=== PATIENT | male | born 1945 | race Caucasian/White ===

== ENCOUNTER 2019-12-06 10:00 | Inpatient (IN) | payer MEDICARE ==
[~2019-12-06] VITALS: Ht 162.6 cm; Wt 63.6 kg
[2019-12-06] MEDS ORDERED: ALBUTEROL 90 MCG/ACT 8GM HFA INHALER INH SCH (10:15)
[2019-12-06] MEDS ORDERED: lisinopriL 5 MG TAB PO ONE (10:30)
[2019-12-06] MEDS ORDERED: CARVedilol 3.125 MG TAB PO ONE (10:30)
[2019-12-06 10:47] LABS: BASO % 0.2 % (0.0-1.0); EOS # 0.1 10^3/uL (0.0-0.5); EOS % 0.6 % (0.0-3.0); HEMATOCRIT 41.8 % (42.0-52.0); HEMOGLOBIN 12.9 g/dl (13.5-17.5); LYMPH # 1.8 10^3/uL (1.5-5.0); LYMPH % 16.8 % (24.0-44.0); MEAN CORPUSCULAR HEMOGLOBIN 30.8 pg (27.0-33.0); MEAN CORPUSCULAR HGB CONC 30.9 g/dl (32.0-36.5); MEAN CORPUSCULAR VOLUME 99.8 fl (80.0-96.0); MONO # 0.7 10^3/uL (0.0-0.8); MONO % 6.2 % (0.0-5.0); NEUTROPHILS # 8.3 10^3/uL (1.5-8.5); NEUTROPHILS % 75.8 % (36.0-66.0); PLATELET COUNT, AUTOMATED 230 10^3/uL (150-450); RED BLOOD COUNT 4.19 10^6/uL (4.30-6.10); WHITE BLOOD COUNT 10.9 10^3/uL (4.0-10.0)
[2019-12-06] MEDS ORDERED: methylPREDNISolone INJ 125 MG/2 ML VIAL (J2930) IV ONE (11:00)
[2019-12-06] MEDS: COMBIVENT RESPIMAT 100-20MCG INHALER 4GM INH SCH ×3 (11:08→11:39)
[2019-12-06 11:19] LABS: ALBUMIN 3.7 GM/DL (3.2-5.2); BILIRUBIN,DIRECT 0.1 MG/DL (0.0-0.2); BILIRUBIN,TOTAL 0.5 MG/DL (0.2-1.0); THYROID STIMULATING HORMONE 0.837 uIU/ML (0.358-3.740); THYROXINE (T4) 9.7 UG/DL (4.5-12.0); TOTAL PROTEIN 7.4 GM/DL (6.4-8.2)
--- NOTE | 2019-12-06 12:22 | REP ---
CHEST, SINGLE VIEW: There is no evidence of acute infiltrate. No pleural effusion is seen. The heart is normal in size. The mediastinal silhouette is unremarkable. The visualized osseous structures are intact. IMPRESSION: No acute pulmonary disease. Electronically Signed by Gume Mckeon MD 12/07/2019 12:09 A
[2019-12-06] MEDS ORDERED: LISI10TA4 PO (12:47)
[2019-12-06] MEDS ORDERED: ATOR80TA59 PO (12:47)
[2019-12-06] MEDS ORDERED: OMEG10002 PO (12:47)
[2019-12-06] MEDS ORDERED: ASPI-161 PO (12:47)
[2019-12-06] MEDS ORDERED: FLUO20CA22 PO (12:47)
[2019-12-06] MEDS ORDERED: FURO20TA2 PO (12:47)
[2019-12-06] MEDS ORDERED: COMBAER6 INH (12:47)
[2019-12-06] MEDS ORDERED: SYMB16INH INH (12:47)
[2019-12-06] MEDS ORDERED: D 1010004 PO (12:47)
[2019-12-06] MEDS ORDERED: GLUCOSE 4GM CHEW TABLET PO PRN (13:45)
[2019-12-06] MEDS ORDERED: DEXTROSE 50% 50 ML SYRINGE IV PRN (13:45)
[2019-12-06] MEDS ORDERED: GLUCAGON INJ 1MG VIAL SC PRN (13:45)
[2019-12-06] MEDS ORDERED: ACETAMINOPHEN TAB 650MG DOSE (2X325MG) PO PRN (13:45)
--- NOTE | 2019-12-06 13:52 | HPEPDOC ---
General Date of Admission 12/06/19 Date of Service: Dec 06, 2019 Chief Complaint The patient is a 74-year-old male admitted with a reason for visit of Diff Breathing. 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 Patient stated that today he started feeling shortness of breath associated with fatigue. He denied any fever, chills, increased sputum production or increased cough. In emergency room patient was found to have acute on chronic hypercarbic respiratory failure on ABG, pH 7.2. Patient received treatment with oxygen therapy and IV steroids. Res piratory panel negative. Chest x-ray didn't show any acute pulmonary infiltrate. EKG showed sinus tach with left bundle branch block. Home Medications Scheduled Aspirin (Aspirin EC) 81 Mg Tablet.dr, 81 MG PO DAILY, (Reported) Atorvastatin Calcium (Atorvastatin Calcium) 80 Mg Tablet, 40 MG PO DAILY, (Reported) Budesonide/Formoterol (Symbicort 160-4.5 Mcg Inhaler) 6 Gm Hfa.aer.ad, 2 PUFF INH BID, (Reported) Cholecalciferol (Vitamin D3) (Vitamin D3) 25 Mcg Capsule, 50 MCG PO DAILY, (Reported) Fluoxetine Hcl (Fluoxetine HCl) 20 Mg Capsule, 20 MG PO DAILY, (Reported) Furosemide (Furosemide) 20 Mg Tablet, 20 MG PO DAILY, (Reported) Lisinopril (Lisinopril) 10 Mg Tablet, 5 MG PO DAILY, (Reported) [place]-3/Dha/Epa/Fish Oil (Fish Oil 1,000 mg Softgel) 1 Each Capsule, 1,000 MG PO TID, (Reported) Prednisone (Prednisone) 20 Mg Tablet, 20 MG PO BID Scheduled PRN Ipratropium/Albuterol Sulfate (Combivent Respimat 20-100 Mcg) 4 Gm Mist.inhal, 1 PUFF INH QID PRN for SHORTNESS OF BREATH, (Reported) Allergies Coded Allergies: No Known Allergies (Unverified , 12/06/19) Past Medical History Medical History Type 2 diabetes, COPD, asthma, coronary artery diseases, hypertension Family History I personally reviewed family history and found not pertinent Social History * Smoker: former Smoker Alcohol: Denies Drugs: denies A-FIB/CHADSVASC A-FIB History Current/History of A-Fib/PAF?: No Current PO Anticoag Therapy: No Review of Systems Constitutional: Reports: Fatigue; Denies: Chills, Fever Eyes: Denies: Pain ENT: Denies: Head Aches Skin: Denies: Rash Pulmonary: Reports: Dyspnea Cardiovascular: Denies: Chest Pain, Palpitations Gastrointestinal: Denies: Nausea, Vomiting Genitourinary: Denies: Dysuria Hematologic: Denies: Bruising, Bleeding Excessively Endocrine: Denies: Polydipsia Musculoskeletal: Denies: Neck Pain, Back Pain Neurological: Denies: Weakness Psych: Reports: Mood Normal Physical Examination General Exam: Positive: Alert, Cooperative Eye Exam: Positive: PERRLA ENT Exam: Positive: Atraumatic Neck Exam: Positive: Supple; Negative: JVD Chest Exam: Positive: Diminished Heart Exam: Positive: Tachycardic Telemetry: Positive: Sinus Abdomen Exam: Positive: Normal bowel sounds Extremity Exam: Positive: Clubbing; Negative: Cyanosis Skin Exam: Positive: Nl turgor and temperature Neuro Exam: Positive: Strength at 5/5 X4 ext Psych Exam: Positive: Mental status NL Vital Signs Vital Signs Date Time Temp Pulse Resp B/P (MAP) Pulse Ox O2 Delivery O2 Flow Rate FiO2 12/06/19 12:08 90 25 91 Comfort Flow 12/06/19 12:00 134/87 (103) 12/06/19 11:11 40.0 35 12/06/19 10:00 98.6 Laboratory Data Labs 24H Laboratory Tests 2 12/06/19 10:28: Immature Granulocyte % (Auto) 0.4, Neutrophils (%) (Auto) 75.8H, Lymphocytes (%) (Auto) 16.8L, Monocytes (%) (Auto) 6.2H, Eosinophils (%) (Auto) 0.6, Basophils (%) (Auto) 0.2, Neutrophils # (Auto) 8.3, Lymphocytes # (Auto) 1.8, Monocytes # (Auto) 0.7, Eosinophils # (Auto) 0.1, Basophils # (Auto) 0.0, Nucleated Red Blood Cells % (auto) 0.0, Total Bilirubin 0.5, Direct Bilirubin 0.1, Aspartate Amino Transf (AST/SGOT) 16, Alanine Aminotransferase (ALT/SGPT) 18, Alkaline Phosphatase 85, Total Protein 7.4, Albumin 3.7, Albumin/Globulin Ratio 1.0, Thyroid Stimulating Hormone (TSH) 0.837, Thyroxine (T4) 9.7 12/06/19 10:31: POC Troponin I (Misc) 0.01, Lactic Acid Level 2.7*H 12/06/19 10:33: POC Glucose (Misc Panel) 257H, POC Sodium (Misc Panel) 144, POC Potassium (Misc Panel) 3.7, POC Chloride (Misc Panel) 98, POC Total CO2 (Misc Panel) 33.0H, POC Blood Urea Nitrogen (Misc Panel 13, POC Ionized Calcium (Misc Panel) 4.8, POC Creatinine (Misc Panel) 1.0, POC Hematocrit (Misc Panel) 43.0 12/06/19 10:48: POC Total CO2 (Misc Panel) 38.0H, POC pH (Misc Panel) 7.260L, POC Base Excess (Misc Panel) 9.0H, POC Saturated Percent O2 (Misc) 99H, POC pO2 (Misc Panel) 150.0H, POC pCO2 (Misc Panel) 80.4*H, POC HCO3 (Misc Panel) 36.1H 12/06/19 12:27: POC pH (Misc Panel) 7.352, POC Base Excess (Misc Panel) 11.0H, POC Saturated Percent O2 (Misc) 92L, POC pO2 (Misc Panel) 69.0L, POC pCO2 (Misc Panel) 66.4*H, POC HCO3 (Misc Panel) 36.8H, POC Total CO2 (Misc Panel) 39.0H CBC/BMP Laboratory Tests 12/06/19 10:28 Microbiology Microbiology 12/06/19 Respiratory Virus Panel (PCR) (KAY) - Final, Complete 12/06/19 Blood Culture, Received Pending Assessment/Plan Patient is 74 years old male with past medical history of asthma, advanced COPD on 4 L at home, coronary artery diseases, hypertension, diabetes mellitus type 2 presented hospital with increased shortness of breath. Patient stated that today he started feeling shortness of breath associated with fatigue. He denied any fever, chills, increased sputum production or increased cough. In emergency room patient was found to have acute on chronic hypercarbic respiratory failure on ABG, pH 7.2. Patient received treatment with oxygen therapy and IV steroids. Respiratory panel negative. Chest x-ray didn't show any acute pulmonary infilt rate Problems (1) Acute and chronic respiratory failure with hypercapnia Status: Acute Problem Text: Most likely secondary to COPD exacerbation IV steroids Continue oxygen therapy Continue monitor ABG Inhalers Incentive spirometry (2) COPD exacerbation Status: Acute Problem Text: See above (3) Diabetes mellitus Status: Chronic Problem Text: Diabetes diet Insulin sliding scale (4) Hypertension Status: Chronic Problem Text: Continue home cardioprotective medications (5) Abnormal EKG Problem Text: EKG showed sinus tachycardia with left bundle branch block , no previous EKG to compare Patient denied any chest pain Will check troponin Plan / VTE VTE Prophylaxis Ordered?: Yes AKOSUA MCCULLOUGH DO Dec 06, 2019 13:52
[2019-12-06 14:00] VITALS: O2SAT 95
[2019-12-06] MEDS ORDERED: ALBUTEROL SULFATE 2.5 MG/0.5 ML INH NEB SOLN NEB SCH (14:00)
[2019-12-06] MEDS ORDERED: COMBIVENT RESPIMAT 100-20MCG INHALER 4GM INH SCH (14:00)
[2019-12-06] MEDS: SYMBICORT 160/4.5MCG INHALER 6GM INH SCH ×2 (14:28→19:53)
[2019-12-06 15:14] LABS: CK-MB VALUE MASS 2.4 NG/ML (<3.6); MB/CK RELATIVE INDEX 3.87 (< OR =4); TROPONIN I 0.09 NG/ML (< 0.10)
[2019-12-06] MEDS ORDERED: ALBUTEROL SULFATE 2.5 MG/0.5 ML INH NEB SOLN NEB PRN (17:00)
[2019-12-06] MEDS: HumaLOG INSULIN (NovoLOG) PER UNIT SC SCH (17:35)
[2019-12-06] MEDS: PANTOPRAZOLE 40MG TAB (PROTONIX) PO SCH (17:36)
[2019-12-06] MEDS: ASPIRIN 81 MG ENTERIC TAB PO SCH (17:36)
[2019-12-06] MEDS: ATORVASTATIN 20 MG TAB PO SCH (17:36)
[2019-12-06] MEDS: FLUoxetine 20 MG CAP PO SCH (17:36)
[2019-12-06] MEDS: FUROSEMIDE 20 MG TAB PO SCH (17:36)
[2019-12-06] MEDS: IPRATROPIUM 0.5MG/ALBUTEROL 2.5MG INH SOL UD 3ML (DUONEB) NEB SCH (19:53)
[2019-12-06] MEDS: methylPREDNISolone INJ 125 MG/2 ML VIAL (J2930) IV SCH (20:28)
[2019-12-06] MEDS: HEPARIN SOD (PORCINE) 5000UNITS/ML VIAL (J1644 PER 1000UNITS) SC SCH (20:29)
--- NOTE | 2019-12-06 20:57 | ECGEPIP ---
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
--- NOTE | 2019-12-06 20:58 | ECGEPIP ---
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
[2019-12-06] MEDS ORDERED: HumaLOG INSULIN (NovoLOG) PER UNIT SC SCH (21:00)
[2019-12-07] MEDS: IPRATROPIUM 0.5MG/ALBUTEROL 2.5MG INH SOL UD 3ML (DUONEB) NEB SCH ×3 (01:39→13:58)
[2019-12-07] MEDS: methylPREDNISolone INJ 125 MG/2 ML VIAL (J2930) IV SCH (04:44)
[2019-12-07 06:00] VITALS: BP 138/67
[2019-12-07 06:31] LABS: HEMATOCRIT 35.5 % (42.0-52.0); HEMOGLOBIN 11.2 g/dl (13.5-17.5); MEAN CORPUSCULAR HGB CONC 31.5 g/dl (32.0-36.5); MEAN CORPUSCULAR VOLUME 98.3 fl (80.0-96.0); PLATELET COUNT, AUTOMATED 191 10^3/uL (150-450); RED BLOOD COUNT 3.61 10^6/uL (4.30-6.10)
[2019-12-07 06:59] LABS: ALBUMIN 2.9 GM/DL (3.2-5.2); ALT/SGPT 16 U/L (12-78); BILIRUBIN,TOTAL 0.5 MG/DL (0.2-1.0); BLOOD UREA NITROGEN 24 MG/DL (7-18); CALCIUM LEVEL 8.9 MG/DL (8.8-10.2); CARBON DIOXIDE LEVEL 33 MEQ/L (21-32); CHLORIDE LEVEL 103 MEQ/L (98-107); CREATININE FOR GFR 1.02 MG/DL (0.70-1.30); GLOMERULAR FILTRATION RATE > 60.0 (>42); GLUCOSE, FASTING 197 MG/DL (70-100); MAGNESIUM LEVEL 2.1 MG/DL (1.8-2.4); POTASSIUM SERUM 3.9 MEQ/L (3.5-5.1); SODIUM LEVEL 141 MEQ/L (136-145); TOTAL PROTEIN 6.7 GM/DL (6.4-8.2)
[2019-12-07] MEDS: HumaLOG INSULIN (NovoLOG) PER UNIT SC SCH ×2 (08:11→12:36)
[2019-12-07] MEDS: HEPARIN SOD (PORCINE) 5000UNITS/ML VIAL (J1644 PER 1000UNITS) SC SCH (08:12)
[2019-12-07] MEDS: FLUoxetine 20 MG CAP PO SCH (08:13)
[2019-12-07] MEDS: FUROSEMIDE 20 MG TAB PO SCH (08:13)
[2019-12-07] MEDS: PANTOPRAZOLE 40MG TAB (PROTONIX) PO SCH (08:13)
[2019-12-07] MEDS: ATORVASTATIN 20 MG TAB PO SCH (08:13)
[2019-12-07] MEDS: ASPIRIN 81 MG ENTERIC TAB PO SCH (08:13)
[2019-12-07 08:15] VITALS: BP 148/77
[2019-12-07] MEDS ORDERED: lisinopriL 5 MG TAB PO SCH (09:00)
[2019-12-07] MEDS ORDERED: PRED20TA PO (12:33)
--- NOTE | 2019-12-07 12:38 | DS.PDOC ---
Discharge Summary General Date of Admission Dec 06, 2019 at 13:36 Date of Discharge 12/07/19 Discharge Summary Chief complaint: Shortness of breath Final diagnosis COPD exacerbation Hypercapnic respiratory failure History of Present Illness Patient is 74 years old male with past medical history of asthma, advanced COPD on 4 L at home, coronary artery diseases, hypertension, diabetes mellitus type 2 presented hospital with increased shortness of breath. Patient stated that today he started feeling shortness of breath associated with fatigue. He denied any fever, chills, increased sputum production or increased cough. In emergency room patient was found to have acute on chronic hypercarbic respiratory failure on ABG, pH 7.2. Patient received treatment with oxygen therapy and IV steroids. Respiratory panel negative. Chest x-ray didn't show any acute pulmonary infiltrate. The patient's ABG improved and the patient's PCO2 came down from 70s to mid 50s. The patient is alert, oriented to time, place and person. The patient has no wheezing, no rhonchi on physical examination. He has been noncompliant with his inhalers and IV spoke with him in detail regarding the compliance. Also suggested to follow with pulmonary for possible repeat PFTs. He is optimized on his inhalers and will be given 20 mg of prednisone for 4 more days and discharge. Also, his EKG showed sinus tach with left bundle branch block.. He denied any chest pains. His troponins were negative. He has been advised to follow with the PCP regarding a repeat EKG and a possible cardiology follow-up if warranted, and part by PCP. He uses 4 L of oxygen at home and is currently on his baseline. PHYSICAL EXAMINATION: General: The patient is awake, alert, oriented x3, sitting up in the bed in no apparent distress. Head and Neck Exam: Extraocular muscles intact. Pupils equally round and reactive to light. Mucous membranes are moist. Neck is supple. There is no jugular venous distention (JVD). Cardiovascular: S1 and S2, regular rate. Trace edema of the bilateral lower extremities. Respiratory: Mild inspiratory wheeze but otherwise normal breath sounds Abdomen: Soft. Positive bowel sounds. Nontender. No organomegaly. Musculoskeletal: Clubbing of the fingernails, no cyanosis was noted. 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 Power is 5/5 in all extremities. Medications. As per discharge reconciliation medication list Activity as tolerated Diet. 2 g sodium diet Follow-up appointments. PCP in 1 week, Condition on discharge. Patient is medically optimized for discharge Discharge disposition: Home Total time spent on this discharge including coordination of care, review of chart documentation and actual contact is around 35 minutes Vital Signs/I&Os Vital Signs Date Time Temp Pulse Resp B/P (MAP) Pulse Ox O2 Delivery O2 Flow Rate FiO2 12/07/19 08:15 148/77 12/07/19 07:59 4.0 12/07/19 06:00 98.1 79 18 93 Nasal Cannula 12/06/19 11:11 35 I&O- Last 24 Hours up to 6 AM 12/07/19 06:00 Intake Total 520 ml Output Total 300 ml Balance 220 ml Laboratory Data Labs 24H Laboratory Tests 2 12/06/19 14:05: Total Creatine Kinase 62, Creatine Kinase MB 2.4, Creatine Kinase MB Relative Index 3.87, Troponin I 0.09 12/06/19 15:10: Lactic Acid Followup at 4 Hours 1.4 12/06/19 16:30: Bedside Glucose (Misc Panel) 232H 12/06/19 19:50: Bedside Glucose (Misc Panel) 212H 12/07/19 05:59: Nucleated Red Blood Cells % (auto) 0.0, Anion Gap 5L, Glomerular Filtration Rate > 60.0, Calcium Level 8.9, Magnesium Level 2.1, Total Bilirubin 0.5, Aspartate Amino Transf (AST/SGOT) 13, Alanine Aminotransferase (ALT/SGPT) 16, Alkaline Phosphatase 61, Total Protein 6.7, Albumin 2.9#L, Albumin/Globulin Ratio 0.8 12/07/19 11:28: Bedside Glucose (Misc Panel) 178H CBC/BMP Laboratory Tests 12/07/19 05:59 FSBS Laboratory Tests Test 12/06/19 16:30 12/06/19 19:50 12/07/19 11:28 Range/Units Bedside Glucose (Misc Panel) 232 212 178 83-110 MG/DL Microbiology Microbiology 12/06/19 Blood Culture, Received Pending 12/06/19 Respiratory Virus Panel (PCR) (KAY) - Final, Complete 12/06/19 Blood Culture - Preliminary, Resulted No growth after 24 hours . All specim... Discharge Medications Scheduled Aspirin (Aspirin EC) 81 Mg Tablet.dr, 81 MG PO DAILY, (Reported) Atorvastatin Calcium (Atorvastatin Calcium) 80 Mg Tablet, 40 MG PO DAILY, (Reported) Budesonide/Formoterol (Symbicort 160-4.5 Mcg Inhaler) 6 Gm Hfa.aer.ad, 2 PUFF INH BID, (Reported) Cholecalciferol (Vitamin D3) (Vitamin D3) 25 Mcg Capsule, 50 MCG PO DAILY, (Reported) Fluoxetine Hcl (Fluoxetine HCl) 20 Mg Capsule, 20 MG PO DAILY, (Reported) Furosemide (Furosemide) 20 Mg Tablet, 20 MG PO DAILY, (Reported) Lisinopril (Lisinopril) 10 Mg Tablet, 5 MG PO DAILY, (Reported) [place]-3/Dha/Epa/Fish Oil (Fish Oil 1,000 mg Softgel) 1 Each Capsule, 1,000 MG PO TID, (Reported) Prednisone (Prednisone) 20 Mg Tablet, 20 MG PO BID Scheduled PRN Ipratropium/Albuterol Sulfate (Combivent Respimat 20-100 Mcg) 4 Gm Mist.inhal, 1 PUFF INH QID PRN for SHORTNESS OF BREATH, (Reported) Allergies Coded Allergies: No Known Allergies (Unverified , 12/06/19) ASAD LYNN MD Dec 07, 2019 12:38
[2019-12-07] MEDS: SYMBICORT 160/4.5MCG INHALER 6GM INH SCH (13:58)
[2019-12-07 14:00] VITALS: BP 114/57
[2019-12-07] MEDS ORDERED: methylPREDNISolone INJ 125 MG/2 ML VIAL (J2930) IV SCH (17:00)
== END 2019-12-07 16:20 | disposition home or self-care (01) | DRG 189 ==
LOC: M ED 10:00 → M ED INP 13:36 → ENRESERV 14:16 → M MSPAV 16:12
PROVIDERS: ADMIT Internal Medicine; ATTEND Internal Medicine
DX: J96.22 Acute and chronic respiratory failure with hypercapnia (principal); J44.1 Chronic obstructive pulmonary disease with (acute) exacerbation; E11.9 Type 2 diabetes mellitus without complications; I10 Essential (primary) hypertension; I25.10 Atherosclerotic heart disease of native coronary artery without angina pectoris; Z79.82 Long term (current) use of aspirin; Z79.899 Other long term (current) drug therapy; I44.7 Left bundle-branch block, unspecified

== ENCOUNTER 2021-01-21 15:43 | Inpatient (IN) | payer MEDICARE, OTHER ==
[~2021-01-21] VITALS: Ht 162.6 cm; Wt 72.9 kg
[~2021-01-21 15:43] MED LIST: ASPI-161 PO; ATOR80TA59 PO; COMBAER6 INH; D 1010004 PO; FLUO20CA22 PO; FURO20TA2 PO; LISI10TA22 PO; OMEG10002 PO; PRED20TA PO; SYMB16INH INH
--- NOTE | 2021-01-21 16:42 | REP ---
INDICATION: CHEST PAIN. COMPARISON: 12/06/2019. TECHNIQUE: Single portable AP view of the chest was performed. FINDINGS: There is no acute infiltrate or pulmonary edema. Lungs are clear. The heart is not significantly enlarged. The mediastinal silhouette is unremarkable. The visualized osseous structures are intact. IMPRESSION: No acute pulmonary disease. <Electronically signed by Gume Mckeon > 01/21/21 [id number]
[2021-01-21] MEDS ORDERED: methylPREDNISolone 125MG 2ML VIAL IV ONE (16:50)
[2021-01-21 17:09] LABS: BASO % 0.3 % (0.0-1.0); EOS % 0.6 % (0.0-3.0); HEMATOCRIT 45.6 % (42.0-52.0); HEMOGLOBIN 14.3 g/dl (13.5-17.5); LYMPH # 1.1 10^3/uL (1.5-5.0); LYMPH % 15.8 % (24.0-44.0); MEAN CORPUSCULAR HEMOGLOBIN 30.1 pg (27.0-33.0); MEAN CORPUSCULAR HGB CONC 31.4 g/dl (32.0-36.5); MONO # 0.5 10^3/uL (0.0-0.8); MONO % 7.5 % (2.0-8.0); NEUTROPHILS % 75.5 % (36.0-66.0); PLATELET COUNT, AUTOMATED 199 10^3/uL (150-450); RED BLOOD COUNT 4.75 10^6/uL (4.30-6.10); WHITE BLOOD COUNT 6.7 10^3/uL (4.0-10.0)
[2021-01-21] MEDS: COMBIVENT RESPIMAT 100-20MCG INHALER 4GM INH SCH ×3 (17:12→18:16)
[2021-01-21 17:43] LABS: ALBUMIN 3.5 GM/DL (3.2-5.2); ALT/SGPT 26 U/L (12-78); BILIRUBIN,DIRECT 0.1 MG/DL (0.0-0.2); BILIRUBIN,TOTAL 0.6 MG/DL (0.2-1.0); FREE T4 0.88 NG/DL (0.76-1.46); LIPASE 151 U/L (73-393); NT-PRO BNP 215 PG/ML (<125); THYROID STIMULATING HORMONE 0.986 uIU/ML (0.358-3.740)
[2021-01-21 17:44] LABS: ABG BASE EXCESS 6.8 (-2.0-2.0); ABG HCO3 35.8 MEQ/L (22.0-26.0); ABG O2 SATURATION 98.6 % (95.0-99.0); ABG PARTIAL PRESSURE CO2 72.4 mmHg (35.0-45.0); ABG PARTIAL PRESSURE O2 122.9 mmHg (75.0-100.0); ABG STANDARD HCO3 30.7 MEQ/L (22.0-26.0); ABG pH (ARTERIAL) 7.312 UNITS (7.350-7.450)
[2021-01-21 18:23] LABS: BLOOD UREA NITROGEN 20 MG/DL (7-18); CALCIUM LEVEL 9.1 MG/DL (8.8-10.2); CARBON DIOXIDE LEVEL 35 MEQ/L (21-32); CHLORIDE LEVEL 102 MEQ/L (98-107); CK-MB VALUE MASS 2.5 NG/ML (<3.6); CPK CREATINE PHOSPHOKINASE 82 U/L (39-308); GLOMERULAR FILTRATION RATE > 60.0 (>42); GLUCOSE, FASTING 186 MG/DL (70-100); MB/CK RELATIVE INDEX 3.05 (< OR =4); POTASSIUM SERUM 4.5 MEQ/L (3.5-5.1); SODIUM LEVEL 140 MEQ/L (136-145); TROPONIN I 0.02 NG/ML (< 0.10)
[2021-01-21] MEDS ORDERED: ISOVUE-370 76% 100ML VIAL As Ordered ONE (19:33)
--- NOTE | 2021-01-21 20:57 | REPVR ---
PROCEDURE INFORMATION: Exam: CT Abdomen And Pelvis With Contrast Exam date and time: 01/21/2021 8:21 PM Age: 75 years old Clinical indication: Abdominal pain; Additional info: Chest pain/upper abdominal pain TECHNIQUE: Imaging protocol: Computed tomography of the abdomen and pelvis with contrast. Radiation optimization: All CT scans at this facility use at least one of these dose optimization techniques: automated exposure control; mA and/or kV adjustment per patient size (includes targeted exams where dose is matched to clinical indication); or iterative reconstruction. Contrast material: ISOVUE 370; Contrast volume: 100 ml; Contrast route: INTRAVENOUS (IV); COMPARISON: [place] PORTABLE CHEST X-RAY 01/21/2021 4:13 PM FINDINGS: Lungs: Atelectasis or scarring right lung base. Liver: There is a diffuse decrease in hepatic parenchymal density, consistent with steatosis. 5 mm simple cyst segment 2 left lobe of the liver. Gallbladder and bile ducts: Normal. No calcified stones. No ductal dilation. Pancreas: Normal. No ductal dilation. Spleen: Normal. No splenomegaly. Adrenal glands: Normal. No mass. Kidneys and ureters: Nonobstructive calculus lower pole left kidney. Bilateral renal cysts measure up to 3.3 cm in the left kidney demonstrating minimal calcification within the wall of the cyst (Bosniak type 2 lesion). No follow-up suggested. Stomach and bowel: Moderate diverticulosis is present in the distal colon. No diverticulitis. Dilated loops of small bowel demonstrated in the left upper quadrant may represent a localized ileus, findings to be correlated clinically. Appendix: No evidence of appendicitis. Intraperitoneal space: Unremarkable. No free air. No significant fluid collection. Vasculature: Moderate atherosclerotic changes in the abdominal aorta with a saccular contour on the left side of the aorta measuring up to 2.4 cm containing soft intraluminal clot. No taran aneurysm. Superior mesenteric artery originates from the hepatic artery. Lymph nodes: Unremarkable. No enlarged lymph nodes. Urinary bladder: Unremarkable as visualized. Reproductive: The prostate gland demonstrates moderate hyperplasia. Bones/joints: Mild central spinal stenosis L1-L2, L2-L3, moderate to severe central spinal stenosis L3-L4, severe central spinal stenosis L4-L5. Soft tissues: There is a small umbilical hernia. There is no evidence of incarceration. IMPRESSION: 1. There is a diffuse decrease in hepatic parenchymal density, consistent with steatosis. 2. Nonobstructive calculus lower pole left kidney. 3. Bilateral renal cysts measure up to 3.3 cm in the left kidney demonstrating minimal calcification within the wall of the cyst (Bosniak type 2 lesion). No follow-up suggested. 4. Moderate atherosclerotic changes in the abdominal aorta with a saccular contour on the left side of the aorta measuring up to 2.4 cm containing soft intraluminal clot. No taran aneurysm. 5. Moderate prostatic hyperplasia. 6. Moderate diverticulosis is present in the distal colon. No diverticulitis. 7. Dilated loops of small bowel demonstrated in the left upper quadrant may represent a localized ileus, findings to be correlated clinically. COMMENTS: Consistent with the [employer]'s Incidental Findings Committee white paper (J Am Shailesh Radiol 2018): Any incidental renal lesion less than 1 cm or classified as too small to characterize, or any incidental cystic renal lesion characterized as simple-appearing, is likely benign. No follow-up imaging is recommended for these lesions per consensus recommendations based on imaging criteria. Electronically signed by: Waldo Tan On 01/21/2021 20:57:17 PM
[2021-01-21] MEDS: HumaLOG INSULIN (NovoLOG) PER UNIT SC SCH (21:00)
--- NOTE | 2021-01-21 21:02 | REPVR ---
PROCEDURE INFORMATION: Exam: CTA Chest With Contrast Exam date and time: 01/21/2021 8:21 PM Age: 75 years old Clinical indication: Pain; Chest pressure; Additional info: Chest pain/upper abdominal pain TECHNIQUE: Imaging protocol: Computed tomographic angiography of the chest with contrast. 3D rendering (Not supervised by radiologist): MIP and/or 3D reconstructed images were created by the technologist. Radiation optimization: All CT scans at this facility use at least one of these dose optimization techniques: automated exposure control; mA and/or kV adjustment per patient size (includes targeted exams where dose is matched to clinical indication); or iterative reconstruction. Contrast material: ISOVUE 370; Contrast volume: 100 ml; Contrast route: INTRAVENOUS (IV); COMPARISON: [place] PORTABLE CHEST X-RAY 01/21/2021 4:13 PM FINDINGS: Pulmonary arteries: There are no pulmonary emboli. Aorta: There is mild atherosclerosis in the thoracic aorta. There is fusiform dilatation of the ascending thoracic aorta which measures 3.9 cm. maximally. There is no dissection or saccular component. Lungs: Centrilobular and paraseptal emphysematous changes demonstrated bilaterally. No infiltrates demonstrated. Pleural spaces: Unremarkable. No pneumothorax. No pleural effusion. Heart: There is mild atherosclerotic calcification of the coronary arteries. Lymph nodes: Unremarkable. No enlarged lymph nodes. Bones/joints: Unremarkable. No acute fracture. Soft tissues: Unremarkable. IMPRESSION: 1. Centrilobular and paraseptal emphysematous changes demonstrated bilaterally. No acute infiltrates. 2. There is fusiform dilatation of the ascending thoracic aorta which measures 3.9 cm. maximally. There is no dissection or saccular component. 3. There are no pulmonary emboli. Electronically signed by: Waldo Tan On 01/21/2021 21:01:41 PM
[2021-01-21] MEDS ORDERED: SENNA 8.6 MG TAB (SENOKOT) PO PRN (22:50)
[2021-01-21] MEDS ORDERED: LEVALBUTEROL HFA 45MCG/ACT 15 GM INHALER INH PRN (22:50)
[2021-01-21] MEDS ORDERED: amLODIPine 5 MG TAB PO ONE (22:55)
[2021-01-21] MEDS ORDERED: CARV6.25 PO (22:59)
[2021-01-21] MEDS ORDERED: HOME MED LIST COMPLETE! XX SCH (23:00)
--- NOTE | 2021-01-21 23:02 | HPEPDOC ---
General Date of Admission 01/21/2021 Date of Service: Jan 21, 2021 Chief Complaint shortness of breath, chest pain, fall off the bed Source: Patient, Old records Exam Limitations: Garbled speech Timing/Duration: 24 hours Severity: Mild Associated Symptoms: Chest Pain, Shortness of breath History of Present Illness Patient is a 75 year old male with past medical history of COPD, Coronary artery disease, hypertension, and type 2 diabetes mellitus presented to ER today by private vehicle after feeling dyspnea at home around 6:30-7AM. He said the dyspnea started gradually with alleviating factor including inhalers and laying supine; no aggravating factor. He denies coughing, fever, chills, or sputum production. He is usually on 5L of oxygen at home. He said he fell off the bed around 6:30 to 7AM and hit his forehead; patient unable to explain if it was mechanical fall or not. He denies any lightheadedness, dizziness, headache, loss of consciousness, extremity weakness, numbness, tingling, or loss of sensation. He also described chest pain that is dull; he pointed toward left upper quadrant abdomen for his chest pain location. Home Medications Scheduled Aspirin (Aspirin EC) 81 Mg Tablet.dr, 81 MG PO DAILY, (Reported) Atorvastatin Calcium (Atorvastatin Calcium) 80 Mg Tablet, 40 MG PO DAILY, (Reported) Budesonide/Formoterol (Symbicort 160-4.5 Mcg Inhaler) 6 Gm Hfa.aer.ad, 2 PUFF INH BID, (Reported) Carvedilol (Carvedilol) 6.25 Mg Tablet, 3.125 MG PO BID, (Reported) Cholecalciferol (Vitamin D3) (Vitamin D3) 25 Mcg Capsule, 50 MCG PO DAILY, (Reported) Lisinopril (Lisinopril) 10 Mg Tablet, 5 MG PO DAILY, (Reported) Guthrie-3/Dha/Epa/Fish Oil (Fish Oil 1,000 mg Softgel) 1 Each Capsule, 1,000 MG PO TID, (Reported) Scheduled PRN Ipratropium/Albuterol Sulfate (Combivent Respimat 20-100 Mcg) 4 Gm Mist.inhal, 1 PUFF INH QID PRN for SHORTNESS OF BREATH, (Reported) Allergies Coded Allergies: No Known Allergies (Unverified , 12/06/19) Past Medical History Medical History 1. Type 2 diabetes mellitus 2. COPD/asthma 3. Coronary artery disease 4. Hypertension 5. Remote history of appendix rupture 6. Teeth loss, not wearing dentures Surgical History Appendectomy 20 years ago Colonoscopy Family History Denies family history with medical disease Social History * Smoker: former Smoker (quit 4 years ago) Alcohol: Denies Drugs: denies lives at home alone A-FIB/CHADSVASC A-FIB History Current/History of A-Fib/PAF?: No Review of Systems Constitutional: Denies: Chills, Fever, Weakness ENT: Denies: Head Aches Skin: Reports: Lesions (on forehead) Pulmonary: Reports: Dyspnea; Denies: Cough Cardiovascular: Reports: Other Symptoms; Denies: Chest Pain, Palpitations, Orthopnea, Lt Headedness (palpitations) Gastrointestinal: Denies: Nausea, Vomiting, Abdominal Pain, Diarrhea, Consti pation, Hematochezia Genitourinary: Denies: Dysuria, Frequency, Hematuria, Retention Hematologic: Reports: Bleeding Excessively; Denies: Bruising Musculoskeletal: Denies: Neck Pain, Back Pain Neurological: Denies: Weakness, Numbness Psych: Reports: Mood Normal; Denies: Thoughts of Self Harm, Thoughts of Harming Other Physical Examination General Exam: Positive: Alert, Cooperative, Mild Distress Eye Exam: Positive: PERRLA, EOMI ENT Exam: Positive: Mucous membr. moist/pink, Other ENT (nasal cannula in susy ce) Neck Exam: Positive: Supple Chest Exam: Positive: Wheezing, Other (midly restricted air movement. Mild accessory muscle use); Negative: Clear to auscultation, Rales, Rhonchi Heart Exam: Positive: Tachycardic, Regular Rhythm; Negative: Murmurs Abdomen Exam: Positive: Normal bowel sounds, Soft, Tenderness (left upper quadrant tenderness) Extremity Exam: Negative: Edema, Swelling Skin Exam: Positive: Lesion (on forehead appears to be from scratches and/or picking) Neuro Exam: Positive: Strength at 5/5 X4 ext, Normal Tone, Sensation Intact, Cranial Nerves 3-12 NL, Other (garbled speech) Psych Exam: Positive: Mental status NL, Mood NL, Memory Intact, Oriented x 3 Vital Signs Vital Signs Date Time Temp Pulse Resp B/P (MAP) Pulse Ox O2 Delivery O2 Flow Rate FiO2 01/21/21 15:44 98.4 121 24 179/103 (128) 99 Nasal Cannula 5.0 Laboratory Data Labs 24H Laboratory Tests 2 01/21/21 16:49: Immature Granulocyte % (Auto) 0.3, Neutrophils (%) (Auto) 75.5H, Lymphocytes (%) (Auto) 15.8L, Monocytes (%) (Auto) 7.5, Eosinophils (%) (Auto) 0.6, Basophils (%) (Auto) 0.3, Neutrophils # (Auto) 5.0, Lymphocytes # (Auto) 1.1L, Monocytes # (Auto) 0.5, Eosinophils # (Auto) 0.0, Basophils # (Auto) 0.0, Nucleated Red Blood Cells % (auto) 0.0, Anion Gap 3L, Glomerular Filtration Rate > 60.0, Calcium Level 9.1, Total Bilirubin 0.6, Direct Bilirubin 0.1, Aspartate Amino Transf (AST/SGOT) 19, Alanine Aminotransferase (ALT/SGPT) 26, Alkaline Phosphatase 72, Total Creatine Kinase 82, Creatine Kinase MB 2.5, Creatine Kinase MB Relative Index 3.05, Troponin I 0.02, PV-Akc-P-Type Natriuretic Peptide 215H, Total Protein 7.0, Albumin 3.5, Albumin/Globulin Ratio 1.0, Lipase 151, Thyroid Stimulating Hormone (TSH) 0.986, Free Thyroxine 0.88 01/21/21 17:34: Blood Gas Bicarbonate Standard 30.7H, Arterial Blood pH 7.312L, Arterial Blood Partial Pressure CO2 72.4*H, Arterial Blood Partial Pressure O2 122.9H, Arterial Blood Total CO2 38.0H, Arterial Blood HCO3 35.8H, Arterial Blood Base Excess 6.8H, Arterial Blood Oxygen Saturation 98.6 01/21/21 22:28: POC pH (Misc Panel) 7.316L, POC Base Excess (Misc Panel) 13.0H, POC Saturated Percent O2 (Misc) 99H, POC pO2 (Misc Panel) 162.0H, POC pCO2 (Misc Panel) 77.1*H, POC HCO3 (Misc Panel) 39.3H, POC Total CO2 (Misc Panel) 42.0H CBC/BMP Laboratory Tests 01/21/21 16:49 Microbiology Microbiology 01/21/21 Respiratory Virus Panel (PCR) ([facility]) - Final, Complete Assessment/Plan Patient is a 75 year olf male with past medical history of COPD reported to be at 5L oxygen at home, coronary artery disease, type 2 diabetes mellitus, and hypertension presented to hospital due to dyspnea started this morning; denies fever, chills, or cough. He also reported chest pain with location being described as in left upper quadrant abdomen as well as falling off the bed this morning. He has palpitation, denies nausea, vomiting, dizziness, lightheadedness, headache, extremity weakness,numbness, tingling, or loss of sensation. ABG indicated respiratory acidosis mixed with metabolic alkalosis. CTA showed no PE, and first troponin was negative. He received one dose of IV 125mg solumedrol in ER and respiratory treatment. Currently saturating at 99% on 5 L nasal cannula. 1. Acute on chronic respiratory failure with hypercapnia likely secondary to COPD exacerbation -dsypnea started this morning - CTA showed "centrilobular and paraseptal emphysematous changes bilaterally." -ABG showed PH 7.312 and PCO2 72.4. Repeat ABG in the morning -s/p 125mg IV solumedrol in ER. start 80mg IV solumedrol Q8H and respiratory treatments scheduled and PRN -Continuous pulse ox and oxygen therapy titrate to oxygen saturation 88-92% -CTA showed no PE -COPD diet 2. Chest pain/left upper quadrant abdominal pain -patient indicated chest pain, described pain is in left upper abdominal region -EKG today similar to prior EKG -tele monitor. First troponin was negative. Continue to follow up with cardiac marker panel 3. Forehead lesion as a result of fall -fall this morning around 6:30 AM to 7AM -patient unable to describe it was mechanical fall -denies any lightheadedness, dizziness, headache, weakness, numbness, tingling, or loss of sensation -EOMI, CN2-12 grossly intact, muscle strength +5/5 in all four extremities. No sensation loss, numbness, or tingling upon touch -forhead lesions appears to be secondary to scratching and/or picking without active signs of infection -CT head without contrast, fall precaution, wound care for forehead lesions 4. Diabetes mellitus type 2 -not on diabetes medications at home. A1C ordered -Glucose checks and sliding scale insulin ACHS 5. Ascending thoracic aorta dilatation -CTA showed fusiform dilatation of the ascending thoracic aorta measured 3.9 cm. maximally. -Outpatient follow up 6. Hypertension -BP elevated with most recent BP 171/95 -one time dose of 5mg Amlodipine PO ordered. Continue home med Lisinopril and Carvedilol -continue vital signs 7. Hepatic steatosis -CT abd/pelvis showed "diffuse decrease in hepatic parenchymal density, consistent with steatosis." -Continue with home med atorvastatin 40mg QD -outpatient follow up 8. Left non-obstructive nephrolithiasis -CT abd/pelvis showed nonobstructive calculus lower pole left kidney -asymptomatic -outpatient follow up 9. Bilateral renal cysts -CT abd/pelvis showed bilateral renal cysts, measure up to 3.3 cm in left kidney demonstrating minimal calcification within the wall of the cyst -outpatient follow up 10. Abdominal aorta atherosclerosis -CT abd/pelvis showed "moderate atherosclerotic changes in abdominal aorta with a saccular contour on left side of the aorta measuring up to 2.4 cm containing soft intraluminal clot -outpatient follow up 11. Prostate hyperplasia -CT abd/pelvis showed moderate prostatic hyperplasia -patient denies any urinary difficulty or symptoms -outpatient follow up 12. Colonic diverticulosis -CT abd/pelvis showed "moderate diverticulosis is present in distal colon. No diverticulitis." -follow up outpatient with PCP DVT prophylaxis: lovenox, SCD, and TEDS Plan / VTE VTE Prophylaxis Ordered?: Yes (SCD, TEDS, lovenox) ANGELES SCOTT DO Jan 21, 2021 23:02
[2021-01-21] MEDS ORDERED: GLUCOSE 4GM CHEW TABLET PO PRN (23:30)
[2021-01-21] MEDS ORDERED: DEXTROSE 50% 50 ML SYRINGE IV PRN (23:30)
[2021-01-21] MEDS ORDERED: GLUCAGON INJ 1MG VIAL SC PRN (23:30)
--- NOTE | 2021-01-21 23:45 | REPVR ---
PROCEDURE INFORMATION: Exam: CT Head Without Contrast Exam date and time: 01/21/2021 11:11 PM Age: 75 years old Clinical indication: Injury or trauma; Fall; Concussion/head injury; Additional info: Reported fell off bed and hit forehead this morning TECHNIQUE: Imaging protocol: Computed tomography of the head without contrast. Radiation optimization: All CT scans at this facility use at least one of these dose optimization techniques: automated exposure control; mA and/or kV adjustment per patient size (includes targeted exams where dose is matched to clinical indication); or iterative reconstruction. COMPARISON: No relevant prior studies available. 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 No midline shift, mass, fluid collection, or evidence of acute hemorrhage. Mild right greater than left white matter chronic low attenuation. Cerebral ventricles: No ventriculomegaly. Paranasal sinuses: Visualized sinuses are unremarkable. No fluid levels. Mastoid air cells: Visualized mastoid air cells are well aerated. Vasculature: Embolized calcification in the right MCA branches. Bones/joints: Unremarkable. No acute fracture. Soft tissues: Mild forehead contusion. IMPRESSION: No acute intracranial abnormality. Electronically signed by: Mendez Swann On 01/21/2021 23:45:34 PM
[2021-01-22] VITALS (16 sets, daily range): BP systolic 126–170; BP diastolic 66–92; O2SAT 93–98
[2021-01-22 00:04] LABS: CK-MB VALUE MASS 3.8 NG/ML (<3.6); MB/CK RELATIVE INDEX 4.42 (< OR =4); TROPONIN I 0.02 NG/ML (< 0.10)
[2021-01-22] MEDS: methylPREDNISolone 125MG 2ML VIAL IV SCH ×3 (01:19→16:32)
[2021-01-22 02:56] LABS: HEMATOCRIT 44.4 % (42.0-52.0); HEMOGLOBIN 13.9 g/dl (13.5-17.5); MEAN CORPUSCULAR HEMOGLOBIN 29.9 pg (27.0-33.0); MEAN CORPUSCULAR HGB CONC 31.3 g/dl (32.0-36.5); MEAN CORPUSCULAR VOLUME 95.5 fl (80.0-96.0); PLATELET COUNT, AUTOMATED 206 10^3/uL (150-450); RED BLOOD COUNT 4.65 10^6/uL (4.30-6.10); WHITE BLOOD COUNT 6.4 10^3/uL (4.0-10.0)
[2021-01-22 03:25] LABS: BLOOD UREA NITROGEN 20 MG/DL (7-18); CALCIUM LEVEL 9.2 MG/DL (8.8-10.2); CARBON DIOXIDE LEVEL 38 MEQ/L (21-32); CHLORIDE LEVEL 102 MEQ/L (98-107); CK-MB VALUE MASS 3.7 NG/ML (<3.6); CPK CREATINE PHOSPHOKINASE 80 U/L (39-308); CREATININE FOR GFR 1.04 MG/DL (0.70-1.30); GLOMERULAR FILTRATION RATE > 60.0 (>42); GLUCOSE, FASTING 179 MG/DL (70-100); MB/CK RELATIVE INDEX 4.62 (< OR =4); POTASSIUM SERUM 4.8 MEQ/L (3.5-5.1); SODIUM LEVEL 140 MEQ/L (136-145); TROPONIN I < 0.02 NG/ML (< 0.10)
[2021-01-22] MEDS: COMBIVENT RESPIMAT 100-20MCG INHALER 4GM INH SCH ×4 (07:11→19:48)
[2021-01-22] MEDS: SYMBICORT 160/4.5MCG INHALER 6GM INH SCH ×2 (07:11→19:48)
[2021-01-22] MEDS: ASPIRIN 81MG ENTERIC TABLET PO SCH (08:13)
[2021-01-22] MEDS: VITAMIN D 1,000 INTERNATIONAL UNITS TABLET PO SCH (08:13)
[2021-01-22] MEDS: ATORVASTATIN 20 MG TAB PO SCH (08:14)
[2021-01-22] MEDS: lisinopriL 5 MG TAB PO SCH (08:14)
[2021-01-22] MEDS: CARVedilol 3.125 MG TAB PO SCH ×2 (08:15→21:16)
[2021-01-22] MEDS: ENOXAPARIN 40MG/0.4ML SYRINGE (J1650 PER 10MG) SC SCH (08:15)
[2021-01-22] MEDS: HumaLOG INSULIN (NovoLOG) PER UNIT SC SCH ×4 (08:16→21:00)
[2021-01-22] MEDS ORDERED: SLF 3 ML SYR IV PRN (08:25)
[2021-01-22] MEDS: OMEGA-3 1000MG CAPSULE PO SCH ×3 (08:26→21:16)
[2021-01-22 08:39] LABS: ABG BASE EXCESS 6.1 (-2.0-2.0); ABG HCO3 33.8 MEQ/L (22.0-26.0); ABG O2 SATURATION 98.5 % (95.0-99.0); ABG PARTIAL PRESSURE O2 111.3 mmHg (75.0-100.0); ABG TOTAL CO2 35.8 MEQ/L (23.0-31.0); ABG pH (ARTERIAL) 7.347 UNITS (7.350-7.450)
[2021-01-22 08:45] LABS: ABG PARTIAL PRESSURE CO2 63.1 mmHg (35.0-45.0)
--- NOTE | 2021-01-22 09:03 | IPN ---
PROGRESS NOTE DATE: 01/22/2021 SUBJECTIVE: The patient still complains of dyspnea with dyspnea on exertion improved from yesterday, cough productive of white sputum. No fever or chills. No nausea or vomiting, headache, diarrhea or abdominal pain. He complains of difficulty starting urine and urine retention. OBJECTIVE: VITAL SIGNS: Temperature 97.2, pulse 87, respiratory rate 20, blood pressure is 134/66, 98% on 5 liters nasal cannula. GENERAL: Patient is awake, alert and oriented to person, place and time, answering questions appropriately. He appears disheveled with overgrown chen. He speaks in full sentences. No conversational dyspnea. No JVD or thyromegaly. LUNGS: Diminished, prolonged expiration with faint expiratory wheezing. HEART: S1 and S2, sinus rhythm. ABDOMEN: Soft, nontender and nondistended. Positive bowel sounds. EXTREMITIES: No cyanosis or clubbing. LABORATORY DATA/MICROBIOLOGY AND IMAGING STUDIES: Have been reviewed. ASSESSMENT AND PLAN: A 75-year-old admitted with dyspnea status post fall and head trauma complains of chest pain, admitted for COPD exacerbation. IMPRESSION: 1. Acute COPD exacerbation. 2. Chronic hypoxic respiratory failure on 5 liters of home oxygen. 3. Chronic left upper quadrant abdominal pain. 4. Recent fall, most likely mechanical. 5. Type 2 diabetes. 6. Ascending thoracic aortic dilatation. CTA shows fusiform dilatation without dissection. 7. Hypertension. 8. Hepatic steatosis. 9. Left nonobstructive nephrolithiasis. 10.Bilateral renal cysts. 11.Abdominal aortic atherosclerotic disease of a 2.4 cm left sided intraluminal clot. 12.Prostate hyperplasia. 13.Colonic diverticulosis without diverticulitis. PLAN: Continue patient on current Solu-Medrol nebulizer treatments, home medications, recheck an ABG, respiratory panel is negative. Keep oxygen saturation 88 to 92%. Titrate oxygen as needed. ARU consult. Will need to review the patient's CT of the chest, abdomen and pelvis with vascular surgery. BRIDGET
[2021-01-22] MEDS: TAMSULOSIN 0.4 MG CAP PO SCH (10:18)
--- NOTE | 2021-01-22 15:47 | ECGEPIP ---
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
[2021-01-22] MEDS: SLF 3 ML SYR IV SCH ×2 (16:32→21:18)
[2021-01-23] VITALS (15 sets, daily range): BP systolic 128–144; BP diastolic 66–89; O2SAT 78–98
[2021-01-23] MEDS: ACETAMINOPHEN TAB 650MG DOSE (2X325MG) PO PRN (02:22)
[2021-01-23] MEDS: methylPREDNISolone 125MG 2ML VIAL IV SCH ×3 (02:23→16:49)
[2021-01-23] MEDS: SLF 3 ML SYR IV SCH ×3 (05:28→21:39)
[2021-01-23] MEDS: COMBIVENT RESPIMAT 100-20MCG INHALER 4GM INH SCH ×4 (08:00→20:00)
[2021-01-23] MEDS: SYMBICORT 160/4.5MCG INHALER 6GM INH SCH ×2 (08:17→20:10)
[2021-01-23 09:32] LABS: BASO % 0.1 % (0.0-1.0); HEMATOCRIT 42.1 % (42.0-52.0); HEMOGLOBIN 13.3 g/dl (13.5-17.5); LYMPH # 0.8 10^3/uL (1.5-5.0); MEAN CORPUSCULAR HEMOGLOBIN 30.2 pg (27.0-33.0); MEAN CORPUSCULAR HGB CONC 31.6 g/dl (32.0-36.5); MEAN CORPUSCULAR VOLUME 95.7 fl (80.0-96.0); MONO # 0.4 10^3/uL (0.0-0.8); MONO % 2.9 % (2.0-8.0); NEUTROPHILS % 91.4 % (36.0-66.0); PLATELET COUNT, AUTOMATED 217 10^3/uL (150-450); WHITE BLOOD COUNT 15.4 10^3/uL (4.0-10.0)
[2021-01-23] MEDS: ASPIRIN 81MG ENTERIC TABLET PO SCH (09:33)
[2021-01-23] MEDS: TAMSULOSIN 0.4 MG CAP PO SCH (09:33)
[2021-01-23] MEDS: OMEGA-3 1000MG CAPSULE PO SCH ×3 (09:33→21:38)
[2021-01-23] MEDS: ATORVASTATIN 20 MG TAB PO SCH (09:33)
[2021-01-23] MEDS: VITAMIN D 1,000 INTERNATIONAL UNITS TABLET PO SCH (09:34)
[2021-01-23] MEDS: CARVedilol 3.125 MG TAB PO SCH ×2 (09:34→21:38)
[2021-01-23] MEDS: ENOXAPARIN 40MG/0.4ML SYRINGE (J1650 PER 10MG) SC SCH (09:34)
[2021-01-23] MEDS: lisinopriL 5 MG TAB PO SCH (09:35)
[2021-01-23] MEDS: HumaLOG INSULIN (NovoLOG) PER UNIT SC SCH ×4 (09:35→21:00)
[2021-01-23 09:37] LABS: ABG BASE EXCESS 4.1 (-2.0-2.0); ABG HCO3 31.8 MEQ/L (22.0-26.0); ABG O2 SATURATION 98.1 % (95.0-99.0); ABG PARTIAL PRESSURE O2 103.6 mmHg (75.0-100.0); ABG STANDARD HCO3 28.1 MEQ/L (22.0-26.0); ABG TOTAL CO2 33.7 MEQ/L (23.0-31.0); ABG pH (ARTERIAL) 7.326 UNITS (7.350-7.450)
[2021-01-23 09:38] LABS: ABG PARTIAL PRESSURE CO2 62.3 mmHg (35.0-45.0)
[2021-01-23 10:18] LABS: BLOOD UREA NITROGEN 38 MG/DL (7-18); CALCIUM LEVEL 9.3 MG/DL (8.8-10.2); CARBON DIOXIDE LEVEL 35 MEQ/L (21-32); CHLORIDE LEVEL 101 MEQ/L (98-107); CK-MB VALUE MASS 9.3 NG/ML (<3.6); CPK CREATINE PHOSPHOKINASE 176 U/L (39-308); CREATININE FOR GFR 1.08 MG/DL (0.70-1.30); GLOMERULAR FILTRATION RATE > 60.0 (>42); GLUCOSE, FASTING 301 MG/DL (70-100); MB/CK RELATIVE INDEX 5.28 (< OR =4); POTASSIUM SERUM 4.5 MEQ/L (3.5-5.1); SODIUM LEVEL 139 MEQ/L (136-145); TROPONIN I < 0.02 NG/ML (< 0.10)
--- NOTE | 2021-01-23 14:51 | IPN ---
PROGRESS NOTE DATE: 01/21/2021 SUBJECTIVE: Patient still complains of dyspnea on exertion, was found to be tachycardic yesterday when he ambulated without any syncopal episode or lightheadedness or dizziness. No chest pain, pressure or tightness this morning. Cough is improving. No fever or chills. OBJECTIVE: Vital signs: Temperature 97.3, pulse 104, sinus tachycardia, respiratory rate 18, blood pressure 128/87, 97% on 3 liters nasal cannula. General: Patient is disheveled, no respiratory distress, able to complete his sentences. Neck: No JVD, no thyromegaly, no cervical lymphadenopathy. Lungs: Diminished with faint expiratory wheezing improved from yesterday. Heart: S1 and S2 sinus tachycardia. Abdomen: Soft, nontender, nondistended, positive bowel sounds. Extremities: No cyanosis, clubbing or any pitting edema. LABORATORY DATA: Laboratory data and microbiology have been reviewed. IMAGING STUDIES: Reviewed. ASSESSMENT: This is a 75-year-old male with a history of COPD, home oxygen dependent with chronic hypoxic respiratory failure, hypertension, ascending thoracic aortic dilatation, abdominal aortic atherosclerotic disease 2.4 cm left sided intraluminal clot, colonic diverticulosis, type-2 diabetes admitted due to worsening shortness of breath, cough productive of white sputum, being treated for a COPD exacerbation. IMPRESSIONS: 1. Acute COPD exacerbation. 2. Chronic hypoxic respiratory failure. 3. Recent fall most likely mechanical. 4. Chronic left upper quadrant abdominal pain. 5. Type-2 diabetes. 6. Ascending thoracic aortic dilation. CTA shows fusiform dilatation without dissection. 7. Hypertension. 8. Hepatic steatosis. 9. Left non-obstructive nephrolithiasis. 10. Bilateral renal cysts. 11. Abdominal aortic atherosclerotic disease 2.4 cm on the left with an intraluminal clot. 12. Prostatic hyperplasia. 13. Diverticulosis. PLAN: Patient is anxious to go home. He has improved air entry with decreased wheezing. May start to taper down the steroids, continue with nebulizer treatments, recheck patient's arterial blood gas, await further physical therapy 1-2 more sessions prior to discharge. BRIDGET
[2021-01-24] VITALS (9 sets, daily range): BP systolic 116–136; BP diastolic 66–93; O2SAT 94–99
[2021-01-24] MEDS: methylPREDNISolone 125MG 2ML VIAL IV SCH ×4 (03:02→20:59)
[2021-01-24] MEDS: SLF 3 ML SYR IV SCH ×3 (03:03→21:00)
[2021-01-24] MEDS: COMBIVENT RESPIMAT 100-20MCG INHALER 4GM INH SCH (07:14)
[2021-01-24] MEDS: SYMBICORT 160/4.5MCG INHALER 6GM INH SCH ×2 (07:14→20:30)
[2021-01-24] MEDS: LEVALBUTEROL 1.25 MG/0.5 ML CONCENTRATE NEB INH SCH ×4 (08:00→20:00)
[2021-01-24] MEDS ORDERED: LEVALBUTEROL 1.25 MG/0.5 ML CONCENTRATE NEB INH PRN (08:45)
[2021-01-24] MEDS: HumaLOG INSULIN (NovoLOG) PER UNIT SC SCH ×4 (08:52→21:00)
[2021-01-24] MEDS: ENOXAPARIN 40MG/0.4ML SYRINGE (J1650 PER 10MG) SC SCH (08:52)
[2021-01-24] MEDS: CARVedilol 3.125 MG TAB PO SCH ×2 (08:53→20:59)
[2021-01-24] MEDS: guaiFENesin ER 600 MG TAB PO SCH ×2 (08:53→20:58)
[2021-01-24] MEDS: TAMSULOSIN 0.4 MG CAP PO SCH (08:53)
[2021-01-24] MEDS: lisinopriL 5 MG TAB PO SCH (08:53)
[2021-01-24] MEDS: ASPIRIN 81MG ENTERIC TABLET PO SCH (08:53)
[2021-01-24] MEDS: VITAMIN D 1,000 INTERNATIONAL UNITS TABLET PO SCH (08:53)
[2021-01-24] MEDS: ATORVASTATIN 20 MG TAB PO SCH (08:54)
[2021-01-24] MEDS: OMEGA-3 1000MG CAPSULE PO SCH ×3 (09:02→20:58)
--- NOTE | 2021-01-24 09:41 | IPN ---
PROGRESS NOTE DATE: 01/24/2021 SUBJECTIVE: Patient has significant distress, able to speak only three to four words with significant conversational dyspnea, use of respiratory accessory muscles, on Solumedrol 80 IV q. 8, he complains of cough which is nonproductive, difficult to expectorate. No fever or chills overnight. Complains of some dyspnea on exertion walking around the room, still with weakness and requires 1 to 2 more sessions of Physical Therapy. Patient is anxious to go home and says that his dog is waiting for him but he realizes that his recovery is taking longer and is still okay to stay in the hospital for treatment. He says "I still want to live, you know." OBJECTIVE: VITAL SIGNS: Temperature 97.5, pulse 95, respiratory rate 23, blood pressure 123/83, 95% on 2 liters nasal cannula. GENERAL: Patient is awake, alert and oriented, muffled speech with disheveled look and chen. Patient is having some difficulty speaking with four to five word conversational dyspnea. NECK: No JVD. No thyromegaly. No cervical lymphadenopathy. Dry mucous membranes. Poor dentition. Disheveled appearing. Positive use of respiratory accessory muscles without tracheal deviation. LUNGS: Diminished with prolonged expiration and bilateral expiratory wheezing. No tripod positioning. HEART: S1 and S2, sinus rhythm. ABDOMEN: Soft, nontender and nondistended. Positive bowel sounds. EXTREMITIES: No cyanosis, clubbing or any pitting edema. LABORATORY DATA: CBC and metabolic panel have been reviewed. ASSESSMENT AND PLAN: This is a 75-year-old male with a history of agent orange exposure, possible black lung, followed at the [facility] in [place], COPD, home oxygen dependent 5 liters, ascending aortic thoracic aneurysm, tobacco abuse, colonic diverticulosis, Type 2 diabetes, presented with dyspnea, cough production, and admitted for COPD exacerbation. IMPRESSION: 1. Acute COPD exacerbation. 2. Acute on chronic hypercarbic respiratory failure. 3. Acute on chronic respiratory acidosis secondary to hypercarbia. 4. Chronic hypoxic respiratory failure on supplemental oxygen 5 liters at home. 5. Recent fall, most likely mechanical. 6. Chronic left upper quadrant abdominal pain. 7. Type 2 diabetes with steroid induced hyperglycemia. 8. Ascending thoracic aortic dilatation without dissection. 9. Hypertension, controlled. 10.Hepatic steatosis. 11.Left nonobstructive nephrolithiasis. 12.Bilateral renal cysts. 13.Abdominal aortic atherosclerotic disease 2.4 cm with intraluminal clot. 14.Prostatic hyperplasia. 15.Diverticulosis. PLAN: Patient is medically sick and unable to ambulate well with significant dyspnea on exertion. He has significant wheezing on exam with poor air movement and use of respiratory accessory muscles, therefore will increase patient's Solumedrol to 125 mg q. 6 hourly. Continue on bronchodilators.
[2021-01-25] VITALS (7 sets, daily range): BP systolic 112–164; BP diastolic 90–119; O2SAT 90–96
[2021-01-25] MEDS: methylPREDNISolone 125MG 2ML VIAL IV SCH ×4 (03:35→19:55)
[2021-01-25] MEDS: LEVALBUTEROL 1.25 MG/0.5 ML CONCENTRATE NEB INH SCH ×7 (04:00→23:32)
[2021-01-25] MEDS: SLF 3 ML SYR IV SCH ×3 (06:09→19:58)
[2021-01-25] MEDS: SYMBICORT 160/4.5MCG INHALER 6GM INH SCH ×2 (07:10→20:00)
[2021-01-25] MEDS: ENOXAPARIN 40MG/0.4ML SYRINGE (J1650 PER 10MG) SC SCH (08:10)
[2021-01-25] MEDS: ASPIRIN 81MG ENTERIC TABLET PO SCH (08:11)
[2021-01-25] MEDS: ATORVASTATIN 20 MG TAB PO SCH (08:11)
[2021-01-25] MEDS: VITAMIN D 1,000 INTERNATIONAL UNITS TABLET PO SCH (08:11)
[2021-01-25] MEDS: TAMSULOSIN 0.4 MG CAP PO SCH (08:11)
[2021-01-25] MEDS: guaiFENesin ER 600 MG TAB PO SCH ×2 (08:11→19:55)
[2021-01-25] MEDS: OMEGA-3 1000MG CAPSULE PO SCH ×3 (08:12→19:56)
[2021-01-25] MEDS: lisinopriL 5 MG TAB PO SCH (08:12)
[2021-01-25] MEDS: CARVedilol 3.125 MG TAB PO SCH ×2 (08:12→19:56)
[2021-01-25 08:15] LABS: HEMATOCRIT 45.3 % (42.0-52.0); HEMOGLOBIN 13.9 g/dl (13.5-17.5); MEAN CORPUSCULAR HEMOGLOBIN 30.2 pg (27.0-33.0); MEAN CORPUSCULAR HGB CONC 30.7 g/dl (32.0-36.5); MEAN CORPUSCULAR VOLUME 98.3 fl (80.0-96.0); PLATELET COUNT, AUTOMATED 240 10^3/uL (150-450); RED BLOOD COUNT 4.61 10^6/uL (4.30-6.10); WHITE BLOOD COUNT 18.3 10^3/uL (4.0-10.0)
[2021-01-25 08:36] LABS: HEMOGLOBIN A1c 6.5 %
[2021-01-25 08:52] LABS: BLOOD UREA NITROGEN 43 MG/DL (7-18); CARBON DIOXIDE LEVEL 40 MEQ/L (21-32); CHLORIDE LEVEL 100 MEQ/L (98-107); CREATININE FOR GFR 0.98 MG/DL (0.70-1.30); GLOMERULAR FILTRATION RATE > 60.0 (>42); GLUCOSE, FASTING 184 MG/DL (70-100); POTASSIUM SERUM 4.8 MEQ/L (3.5-5.1); SODIUM LEVEL 142 MEQ/L (136-145)
[2021-01-25] MEDS: HumaLOG INSULIN (NovoLOG) PER UNIT SC SCH ×4 (09:33→19:56)
--- NOTE | 2021-01-25 10:21 | IPNPDOC ---
Date Seen The patient was seen on 01/25/21. Progress Note SUBJECTIVE: slight improvement with increased solumedrol dose, but still w conversational dyspnea, and dry cough difficult to expectorate desepite acapella and mucinex. no cp, fever, chills. OBJECTIVE: VITAL SIGNS: see below GENERAL:4word conversational dyspnea. chen. no tripod positioning or cyanosis NECK: No JVD. No thyromegaly. No cervical lymphadenopathy. Dry mucous membranes. Poor dentition. Disheveled appearing. Positive use of respiratory accessory muscles without tracheal deviation. LUNGS: Diminished with prolonged expiration and bilateral expiratory wheezing. HEART: S1 and S2, sinus rhythm. ABDOMEN: Soft, nontender and nondistended. Positive bowel sounds. EXTREMITIES: No cyanosis, clubbing or any pitting edema. LABORATORY DATA: CBC and metabolic panel have been reviewed. ASSESSMENT AND PLAN: This is a 75-year-old male with a history of agent orange exposure, possible black lung, followed at the [facility] in [place], COPD, home oxygen dependent 5 liters, ascending aortic thoracic aneurysm, tobacco abuse, colonic diverticulosis, Type 2 diabetes, presented with dyspnea, cough production, and admitted for COPD exacerbation. IMPRESSION: 1. Acute COPD exacerbation. 2. Acute on chronic hypercarbic respiratory failure. 3. Acute on chronic respiratory acidosis secondary to hypercarbia. 4. Chronic hypoxic respiratory failure on supplemental oxygen 5 liters at home. 5. Recent fall, most likely mechanical. 6. Chronic left upper quadrant abdominal pain. 7. Type 2 diabetes with steroid induced hyperglycemia. 8. Ascending thoracic aortic dilatation without dissection. 9. Hypertension, controlled. 10.Hepatic steatosis. 11.Left nonobstructive nephrolithiasis. 12.Bilateral renal cysts. 13.Abdominal aortic atherosclerotic disease 2.4 cm with intraluminal clot. 14.Prostatic hyperplasia. 15.Diverticulosis. PLAN: No significant improvement and remains w b/l wheezing despite increased solumedrol dose, nebs q4hrs. pt says he had a h/o black lung, agent orange exposure, and tobacco abuse. no chest pain. ct chest : neg pna or effusion. continue w same mgt, nebs, o2, solumedrol, abx.pulmonology consult in am if no change clinically. VS, I&O, 24H, Fishbone Vital Signs/I&O Vital Signs Date Time Temp Pulse Resp B/P (MAP) Pulse Ox O2 Delivery O2 Flow Rate FiO2 01/25/21 10:00 4.0 01/25/21 08:12 148/90 01/25/21 08:12 123 01/25/21 05:22 97.4 20 91 Nasal Cannula I&O- Last 24 Hours up to 6 AM 01/25/21 06:00 Intake Total 1270 ml Balance 1270 ml Laboratory Data 24H LABS Laboratory Tests 2 01/24/21 11:26: Bedside Glucose (Misc Panel) 188H 01/24/21 16:49: Bedside Glucose (Misc Panel) 159H 01/24/21 20:25: Bedside Glucose (Misc Panel) 165H 01/24/21 20:57: Bedside Glucose (Misc Panel) 177H 01/25/21 07:22: Nucleated Red Blood Cells % (auto) 0.0, Anion Gap 2L, Glomerular Filtration Rate > 60.0, Estimated Mean Plasma Glucose 140H, Hemoglobin A1c 6.5, Calcium Level 9.0 CBC/BMP Laboratory Tests 01/25/21 07:22 Microbiology Microbiology 01/21/21 Respiratory Virus Panel (PCR) ([facility]) - Final, Complete JALIL NEWMAN MD Jan 25, 2021 10:21
[2021-01-26] MEDS: RAMELTEON 8 MG TAB (ROZEREM) PO PRN ×2 (01:14→20:58)
[2021-01-26] MEDS: LEVALBUTEROL 1.25 MG/0.5 ML CONCENTRATE NEB INH SCH ×6 (03:12→23:15)
[2021-01-26] MEDS: methylPREDNISolone 125MG 2ML VIAL IV SCH ×4 (03:16→20:58)
[2021-01-26] MEDS: SLF 3 ML SYR IV SCH ×3 (05:06→20:59)
[2021-01-26 06:31] VITALS: BP 138/79
[2021-01-26] MEDS: SYMBICORT 160/4.5MCG INHALER 6GM INH SCH ×2 (07:16→19:14)
[2021-01-26] MEDS: HumaLOG INSULIN (NovoLOG) PER UNIT SC SCH ×4 (08:17→20:51)
[2021-01-26] MEDS: ENOXAPARIN 40MG/0.4ML SYRINGE (J1650 PER 10MG) SC SCH (08:18)
[2021-01-26] MEDS: guaiFENesin ER 600 MG TAB PO SCH ×2 (08:24→20:58)
[2021-01-26] MEDS: ASPIRIN 81MG ENTERIC TABLET PO SCH (08:24)
[2021-01-26] MEDS: CARVedilol 3.125 MG TAB PO SCH ×2 (08:25→20:59)
[2021-01-26] MEDS: OMEGA-3 1000MG CAPSULE PO SCH ×3 (08:25→20:58)
[2021-01-26] MEDS: TAMSULOSIN 0.4 MG CAP PO SCH (08:25)
[2021-01-26] MEDS: VITAMIN D 1,000 INTERNATIONAL UNITS TABLET PO SCH (08:25)
[2021-01-26] MEDS: ATORVASTATIN 20 MG TAB PO SCH (08:25)
[2021-01-26] MEDS: lisinopriL 5 MG TAB PO SCH (08:25)
[2021-01-26] MEDS: ACETAMINOPHEN TAB 650MG DOSE (2X325MG) PO PRN (10:08)
[2021-01-26 14:00] VITALS: BP 140/76
--- NOTE | 2021-01-26 18:09 | CR.PDOC ---
General Date of Consultation: Jan 26, 2021 Referring Provider: JALIL NEWMAN MD Attending Physician: JALIL NEWMAN MD Consultation REASON FOR CONSULTATION/CHIEF COMPLAINT: Chest pain, chest tightness. HISTORY OF PRESENT ILLNESS: This is a 74-year-old gentleman with past medical history of extensive emphysema and chronic hypoxic respiratory failure on 4 to 5 L of oxygen at home, COPD, coronary artery disease, former tobacco abuse, hypertension, type 2 diabetes presented to ER on January 22, 2021 with complaints of midsternal chest tightness and shortness of breath. He is currently being ruled out for coronary artery disease. However he is still remains on 5 L oxygen 15/12. He is simultaneously getting treatment for COPD exacerbation with systemic corticosteroid and nebulizer therapy. Despite this treatment, he still hypoxic and wheezing. Therefore pulmonary was consulted. Upon my evaluation, patient still has midsternal chest pain with shortness of breath that is slightly worsened from his baseline. Otherwise, he denies of f ever, chills, nausea, vomiting, palpitation, lower extremity swelling. He does endorse shortness of breath worsened with lying supine and improved with sitting or standing. He also admits to experiencing heartburn but does not take any medication. He does follow with Dr. Wanda Ignacio at [facility]. He does have a home BiPAP but has not been using it. CT scan of the chest done during this hospital admission shows extensive biapical centrilobular emphysema with severe bilateral bronchomalacia. Medical History 1. Type 2 diabetes mellitus 2. COPD/asthma 3. Coronary artery disease 4. Hypertension 5. Remote history of appendix rupture 6. Teeth loss, not wearing dentures Surgical History Appendectomy 20 years ago Colonoscopy Family History Denies family history with medical disease Social History * Smoker: former Smoker (quit 4 years ago) Alcohol: Denies Drugs: denies lives at home alone ALLERGIES: Please see below. HOME MEDICATIONS: Please see below. REVIEW OF SYSTEMS: CONSTITUTIONAL: He denies fever, chills, weight loss, appetite change, night sweats. HEENT: He denies of sinusitis or sore throat. CARDIOVASCULAR: He endorses chest pain and orthopnea. He denies palpitation. RESPIRATORY: He endorses shortness of breath. He denies wheezing, cough, hemoptysis. GENITOURINARY: He denies dysuria. MUSCULOSKELETAL: He denies arthralgia or myalgia. GASTROINTESTINAL: He endorses acid reflux. He denies nausea, vomiting, diarrhea, abdominal pain. SKIN: He denies rash. NEUROLOGICAL: He denies slurred speech or focal weakness/numbness. PSYCHIATRIC: He denies depression. ENDOCRINE: He denies weight change. HEMATOLOGIC/LYMPHATIC: He denies bleeding. ALLERGIC/IMMUNOLOGIC: He denies allergy. PHYSICAL EXAMINATION: VITAL SIGNS: Please see below. GENERAL APPEARANCE: Patient appears older than stated age. Patient is alert and oriented x3. Patient is sleeping comfortably and not in acute distress. HEENT: No evidence of JVD or cervical adenopathy. RESPIRATORY: Very distant breath sounds with no evidence of wheezing, rhonchi, Rales. CARDIOVASCULAR: Distant heart sounds with no evidence of extra heart sounds or murmur. ABDOMEN: Distended but soft nontender to deep palpation. EXTREMITIES: Slight clubbing of the fingers. No evidence of pedal edema. NEUROLOGICAL: Gross neuro examination is normal with no evidence of focal neurological deficit. PSYCHIATRIC: He is alert and oriented x3. LABORATORY DATA: Please see below. ASSESSMENT/PLAN: This is a 74-year-old gentleman with past medical history of extensive emphysema and chronic hypoxic respiratory failure on 4 to 5 L of oxygen at home, COPD, coronary artery disease, former tobacco abuse, hypertension, type 2 diabetes presented to ER on January 22, 2021 with complaints of midsternal chest tightness and shortness of breath. 1. Chest tightness rule out ACS. 2. Chronic hypercapnic and hypoxic respiratory failure secondary to severe emphysema/COPD. 3. Severe tracheobronchomalacia 4. GERD Plan: 1. Rule out ACS as the primary cause of his presenting symptom. 2. Patient does retain CO2 from underlying COPD. Based on the arterial blood gas, he does qualify for BiPAP. He does follow with Dr. Wanda Zamora at [facility] and has a BiPAP machine at home which he is not using his BiPAP currently. I recommend patient be started on BiPAP 12/6 with 5 L of oxygen bled here in the hospital. This will be the treatment for his underlying chronic hypercapnia hypoxic respiratory failure secondary to COPD as well as for his tracheobronchomalacia. 3. For his severe tracheobronchomalacia, I believe that treatment approach will be ideal with intermittent positive pressure ventilation. Ultimately he is a candidate for trial of airway stenting or tracheal sleeve resection. 4. Recommend to start him on PPI to control his GERD as this may be the primary contributing factor to his severe tracheobronchomalacia. Vital Signs/I&O Vital Signs Date Time Temp Pulse Resp B/P (MAP) Pulse Ox O2 Delivery O2 Flow Rate FiO2 01/26/21 14:00 98.3 100 20 140/76 (97) 96 Nasal Cannula 4.0 I&O- Last 24 Hours up to 6 AM 01/26/21 06:00 Intake Total 780 ml Output Total 0 ml Balance 780 ml Laboratory Data Labs 24H Laboratory Tests 2 01/25/21 19:39: Bedside Glucose (Misc Panel) 229H 01/26/21 06:33: Bedside Glucose (Misc Panel) 191H 01/26/21 12:09: Bedside Glucose (Misc Panel) 145H 01/26/21 16:36: Bedside Glucose (Misc Panel) 166H Microbiology Microbiology 01/21/21 Respiratory Virus Panel (PCR) ([facility]) - Final, Complete Allergies Coded Allergies: No Known Allergies (Unverified , 12/06/19) Home Medications Scheduled Aspirin (Aspirin EC) 81 Mg Tablet.dr, 81 MG PO DAILY, (Reported) Atorvastatin Calcium (Atorvastatin Calcium) 80 Mg Tablet, 40 MG PO DAILY, (Reported) Budesonide/Formoterol (Symbicort 160-4.5 Mcg Inhaler) 6 Gm Hfa.aer.ad, 2 PUFF INH BID, (Reported) Carvedilol (Carvedilol) 6.25 Mg Tablet, 3.125 MG PO BID, (Reported) Cholecalciferol (Vitamin D3) (Vitamin D3) 25 Mcg Capsule, 50 MCG PO DAILY, (Reported) Lisinopril (Lisinopril) 10 Mg Tablet, 5 MG PO DAILY, (Reported) [place]-3/Dha/Epa/Fish Oil (Fish Oil 1,000 mg Softgel) 1 Each Capsule, 1,000 MG PO TID, (Reported) Scheduled PRN Ipratropium/Albuterol Sulfate (Combivent Respimat 20-100 Mcg) 4 Gm Mist.inhal, 1 PUFF INH QID PRN for SHORTNESS OF BREATH, (Reported) WANDA IVERSON MD Jan 26, 2021 18:09
[2021-01-26] MEDS ORDERED: PANTOPRAZOLE 40MG TAB (PROTONIX) PO ONE (18:30)
[2021-01-26 21:00] VITALS: O2SAT 90
[2021-01-26 22:00] VITALS: BP 146/79
[2021-01-27] MEDS: methylPREDNISolone 125MG 2ML VIAL IV SCH ×4 (02:15→21:21)
[2021-01-27] MEDS: LEVALBUTEROL 1.25 MG/0.5 ML CONCENTRATE NEB INH SCH ×6 (03:30→22:48)
[2021-01-27 06:00] VITALS: BP 112/63
[2021-01-27] MEDS: SLF 3 ML SYR IV SCH ×3 (06:38→21:22)
[2021-01-27] MEDS: SYMBICORT 160/4.5MCG INHALER 6GM INH SCH ×2 (07:12→20:32)
[2021-01-27] MEDS ORDERED: NITROGLYCERIN 0.4 MG SUBL TABLET SL STA (07:49)
[2021-01-27] MEDS: HumaLOG INSULIN (NovoLOG) PER UNIT SC SCH ×4 (08:29→21:00)
[2021-01-27 08:30] LABS: CK-MB VALUE MASS 4.3 NG/ML (<3.6); CPK CREATINE PHOSPHOKINASE 81 U/L (39-308); MB/CK RELATIVE INDEX 5.31 (< OR =4); TROPONIN I < 0.02 NG/ML (< 0.10)
[2021-01-27] MEDS: guaiFENesin ER 600 MG TAB PO SCH ×2 (08:30→21:21)
[2021-01-27] MEDS: PANTOPRAZOLE 40MG TAB (PROTONIX) PO SCH (08:30)
[2021-01-27] MEDS: ASPIRIN 81MG ENTERIC TABLET PO SCH (08:30)
[2021-01-27] MEDS: VITAMIN D 1,000 INTERNATIONAL UNITS TABLET PO SCH (08:31)
[2021-01-27] MEDS: OMEGA-3 1000MG CAPSULE PO SCH ×3 (08:31→21:19)
[2021-01-27] MEDS: lisinopriL 5 MG TAB PO SCH (08:31)
[2021-01-27] MEDS: TAMSULOSIN 0.4 MG CAP PO SCH (08:32)
[2021-01-27] MEDS: CARVedilol 3.125 MG TAB PO SCH ×2 (08:32→21:20)
[2021-01-27] MEDS: ATORVASTATIN 20 MG TAB PO SCH (08:32)
[2021-01-27] MEDS: ENOXAPARIN 40MG/0.4ML SYRINGE (J1650 PER 10MG) SC SCH (08:32)
[2021-01-27] MEDS ORDERED: IPRATROPIUM HFA INHALER 12.9 GRAMS (ATROVENT HFA) INH PRN (12:00)
[2021-01-27 14:00] VITALS: BP 156/70
[2021-01-27 20:00] VITALS: BP 152/92
[2021-01-28] MEDS: methylPREDNISolone 125MG 2ML VIAL IV SCH ×4 (02:02→23:18)
[2021-01-28] MEDS: LEVALBUTEROL 1.25 MG/0.5 ML CONCENTRATE NEB INH SCH ×6 (04:07→23:32)
--- NOTE | 2021-01-28 06:55 | ECGEPIP ---
[facility] Test Date: 2021-01-27 Pat Name: LUNA TUCKER Department: Room: [place] [address] Gender: Male Exchange Operator: MERLYN : 1945 Requested By: JALIL Garcia Order Number: [id number] Reading MD: Regan Snow Measurements Intervals [place] Rate: 96 P: 76 W[place]: 150 QRS: 6 QRSD: 142 T: 133 QT: 390 QTc: 492 Interpretive Statements Normal sinus rhythm Left bundle branch block No significant change when compared to prior tracing of 01/21/2021 Electronically Signed on 01-28-2021 6:55:52 EDT by Regan Snow
[2021-01-28 07:05] LABS: HEMATOCRIT 41.1 % (42.0-52.0); HEMOGLOBIN 12.7 g/dl (13.5-17.5); MEAN CORPUSCULAR HEMOGLOBIN 29.7 pg (27.0-33.0); MEAN CORPUSCULAR HGB CONC 30.9 g/dl (32.0-36.5); MEAN CORPUSCULAR VOLUME 96.3 fl (80.0-96.0); PLATELET COUNT, AUTOMATED 184 10^3/uL (150-450); RED BLOOD COUNT 4.27 10^6/uL (4.30-6.10); WHITE BLOOD COUNT 13.3 10^3/uL (4.0-10.0)
[2021-01-28] MEDS: SYMBICORT 160/4.5MCG INHALER 6GM INH SCH ×2 (07:06→19:23)
[2021-01-28] MEDS: SLF 3 ML SYR IV SCH ×3 (07:22→21:37)
[2021-01-28 07:23] LABS: BLOOD UREA NITROGEN 39 MG/DL (7-18); CALCIUM LEVEL 8.3 MG/DL (8.8-10.2); CARBON DIOXIDE LEVEL 38 MEQ/L (21-32); CHLORIDE LEVEL 103 MEQ/L (98-107); GLOMERULAR FILTRATION RATE > 60.0 (>42); GLUCOSE, FASTING 198 MG/DL (70-100); MAGNESIUM LEVEL 2.7 MG/DL (1.8-2.4); POTASSIUM SERUM 4.6 MEQ/L (3.5-5.1); SODIUM LEVEL 143 MEQ/L (136-145)
[2021-01-28] MEDS: HumaLOG INSULIN (NovoLOG) PER UNIT SC SCH ×4 (08:09→21:00)
[2021-01-28] MEDS: ATORVASTATIN 20 MG TAB PO SCH (08:10)
[2021-01-28] MEDS: guaiFENesin ER 600 MG TAB PO SCH ×2 (08:10→21:36)
[2021-01-28] MEDS: OMEGA-3 1000MG CAPSULE PO SCH (08:10)
[2021-01-28] MEDS: ENOXAPARIN 40MG/0.4ML SYRINGE (J1650 PER 10MG) SC SCH (08:10)
[2021-01-28] MEDS: TAMSULOSIN 0.4 MG CAP PO SCH (08:10)
[2021-01-28] MEDS: ASPIRIN 81MG ENTERIC TABLET PO SCH (08:10)
[2021-01-28] MEDS: lisinopriL 5 MG TAB PO SCH (08:11)
[2021-01-28] MEDS: CARVedilol 3.125 MG TAB PO SCH ×2 (08:11→21:36)
[2021-01-28] MEDS: PANTOPRAZOLE 40MG TAB (PROTONIX) PO SCH (08:11)
[2021-01-28] MEDS: VITAMIN D 1,000 INTERNATIONAL UNITS TABLET PO SCH (08:11)
[2021-01-28] MEDS ORDERED: haloperidoL 0.5 MG TAB PO ONE (10:50)
--- NOTE | 2021-01-28 11:03 | IPNPDOC ---
Subjective Date Seen The patient was seen on 01/27/21. Subjective Chief Complaint/HPI Patient was seen and examined at bedside this morning. He was complaining of substernal chest pain that was reproducible with a cough. He wanted to go home and threatened to leave AGAINST MEDICAL ADVICE. However, he was explained at length the reason for his admission that him still requiring high doses of steroid to help with his COPD exacerbation. He was noncompliant with his BiPAP overnight. He was explained why the BiPAP was essential for his healing process, he said he would try to be more compliant with it tonight. Other systems 10 point review of system was negative except for what is noted in the HPI Objective Physical Examination Neck Exam: Positive: Supple Heart Exam: Negative: Murmurs Other physical findings General: Lying in bed, no acute distress Head/Neck/Throat: Trachea midline, mucous membranes moist Eyes: Sclera anicteric, no erythema or discharge appreciated bilaterally Thorax: Saturating at 97% on 4 L nasal cannula, bronchospastic bilaterally Cardiovascular: Normal rate, regular rhythm, normal S1, S2 Abdomen: Bowel sounds present, soft/nontender/nondistended Genitourinary: No CVA tenderness, no Watts in place Musculoskeletal: Moving all extremities, no edema Skin: Warm, dry Neurologic: AAOx3, speech fluent and goal-directed, no focal deficits, grossly intact Assessment /Plan Assessment #Acute respiratory failure with hypoxia and hypercapnia -Continue Solu-Medrol, lev-albuterol, will add ipratropium, and nippv support at night. -supplemental 02, with goal b/w 88-92%. Uses chronic 02. -Noncompliant with NIPPV, patient wound is clean with that this was essential. #Tracheobronchomalacia -nippv for now. He needs to follow up as outpt for possible airway stenting, and tracheal sleeve -appreciate pulm. recs. #Coronary artery disease -Low suspicion for ACS. EKG shows no new acute changes. Troponins have been negative thus far. -The chest pain he describes is atypical exacerbated with cough. -c/w aspirin, bb, and statin therapy. #HTN -Continue with lisinopril #DVT ppx -Enoxaparin Plan/VTE VTE Prophylaxis Ordered?: Yes (SCD, TEDS, lovenox) VS, I&O, 24H, Fishbone Vital Signs/I&O Vital Signs Date Time Temp Pulse Resp B/P (MAP) Pulse Ox O2 Delivery O2 Flow Rate FiO2 01/27/21 08:32 105 158/94 01/27/21 07:30 4.0 01/27/21 06:00 98.0 20 97 Nasal Cannula I&O- Last 24 Hours up to 6 AM 01/27/21 06:00 Intake Total 1060 ml Output Total 0 ml Balance 1060 ml Laboratory Data 24H LABS Laboratory Tests 2 01/26/21 12:09: Bedside Glucose (Misc Panel) 145H 01/26/21 16:36: Bedside Glucose (Misc Panel) 166H 01/26/21 20:08: Bedside Glucose (Misc Panel) 151H 01/27/21 06:26: Bedside Glucose (Misc Panel) 186H 01/27/21 07:55: Total Creatine Kinase 81, Creatine Kinase MB 4.3H, Creatine Kinase MB Relative Index 5.31H, Troponin I < 0.02 Microbiology Microbiology 01/21/21 Respiratory Virus Panel (PCR) ([facility]) - Final, Complete DELMI CHEN M.D. Jan 27, 2021 12:05
--- NOTE | 2021-01-28 11:05 | IPNPDOC ---
Subjective Date Seen The patient was seen on 01/28/21. Subjective Chief Complaint/HPI Patient was seen and examined at bedside this morning. He had no new complaints, reported compliance with his BiPAP overnight. He denied chest pain, shortness of breath, abdominal pain, nausea, vomiting, problem with urination and bowel movements. Overnight no acute events were reported. Other systems 10 point review of system was negative except for what is noted in the HPI Objective Physical Examination Other physical findings General: Lying in bed, no acute distress Head/Neck/Throat: Trachea midline, mucous membranes moist Eyes: Sclera anicteric, no erythema or discharge appreciated bilaterally Thorax: Saturating at 97% on 4 L nasal cannula, wheezing bilaterally Cardiovascular: Normal rate, regular rhythm, normal S1, S2 Abdomen: Bowel sounds present, soft/nontender/nondistended Genitourinary: No CVA tenderness, no Watts in place Musculoskeletal: Moving all extremities, no edema Skin: Warm, dry Neurologic: AAOx3, speech fluent and goal-directed, no focal deficits, grossly intact Assessment /Plan Assessment #Acute respiratory failure with hypoxia and hypercapnia -Continue Solu-Medrol taper, lev-albuterol, ipratropium, and nippv support at night. -supplemental 02, with goal b/w 88-92%. Uses chronic 02. #Tracheobronchomalacia -nippv for now. He needs to follow up as outpt for possible airway stenting, and tracheal sleeve -appreciate pulm. recs. #Coronary artery disease -Low suspicion for ACS. EKG shows no new acute changes. Troponins have been negative thus far. -The chest pain he describes is atypical exacerbated with cough. -c/w aspirin, bb, and statin therapy. #HTN -Continue with lisinopril #DVT ppx -Enoxaparin Plan/VTE VTE Prophylaxis Ordered?: Yes (SCD, TEDS, lovenox) VS, I&O, 24H, Fishbone Vital Signs/I&O Vital Signs Date Time Temp Pulse Resp B/P (MAP) Pulse Ox O2 Delivery O2 Flow Rate FiO2 01/28/21 08:11 146/86 01/28/21 08:11 104 01/27/21 22:53 4.0 01/27/21 20:00 97.8 32 93 Nasal Cannula I&O- Last 24 Hours up to 6 AM 01/28/21 06:00 Intake Total 600 ml Output Total 0 ml Balance 600 ml Laboratory Data 24H LABS Laboratory Tests 2 01/27/21 11:50: Bedside Glucose (Misc Panel) 181H 01/27/21 16:22: Bedside Glucose (Misc Panel) 151H 01/27/21 20:37: Bedside Glucose (Misc Panel) 151H 01/28/21 06:24: Nucleated Red Blood Cells % (auto) 0.0, Anion Gap 2L, Glomerular Filtration Rate > 60.0, Calcium Level 8.3L, Phosphorus Level 4.0, Magnesium Level 2.7H CBC/BMP Laboratory Tests 01/28/21 06:24 Microbiology Microbiology 01/21/21 Respiratory Virus Panel (PCR) ([facility]) - Final, Complete DELMI CHEN M.D. Jan 28, 2021 11:05
[2021-01-28] MEDS ORDERED: ALPRAZolam 0.25 MG TAB PO ONE (12:00)
[2021-01-28 14:00] VITALS: BP 142/82
[2021-01-28 19:54] VITALS: BP 142/82
[2021-01-28] MEDS: ACETAMINOPHEN TAB 650MG DOSE (2X325MG) PO PRN (21:35)
[2021-01-28] MEDS: RAMELTEON 8 MG TAB (ROZEREM) PO PRN (21:35)
[2021-01-29] VITALS (11 sets, daily range): BP systolic 92–157; BP diastolic 57–83
[2021-01-29] MEDS: LEVALBUTEROL 1.25 MG/0.5 ML CONCENTRATE NEB INH SCH ×6 (03:27→23:33)
[2021-01-29 06:36] LABS: HEMATOCRIT 41.4 % (42.0-52.0); HEMOGLOBIN 12.7 g/dl (13.5-17.5); MEAN CORPUSCULAR HEMOGLOBIN 30.4 pg (27.0-33.0); MEAN CORPUSCULAR HGB CONC 30.7 g/dl (32.0-36.5); PLATELET COUNT, AUTOMATED 176 10^3/uL (150-450); RED BLOOD COUNT 4.18 10^6/uL (4.30-6.10); WHITE BLOOD COUNT 14.3 10^3/uL (4.0-10.0)
[2021-01-29] MEDS: methylPREDNISolone 125MG 2ML VIAL IV SCH ×2 (06:39→18:37)
[2021-01-29] MEDS: SLF 3 ML SYR IV SCH ×3 (06:40→20:34)
[2021-01-29 07:02] LABS: BLOOD UREA NITROGEN 41 MG/DL (7-18); CALCIUM LEVEL 8.2 MG/DL (8.8-10.2); CARBON DIOXIDE LEVEL 40 MEQ/L (21-32); CHLORIDE LEVEL 105 MEQ/L (98-107); CREATININE FOR GFR 0.62 MG/DL (0.70-1.30); GLOMERULAR FILTRATION RATE > 60.0 (>42); GLUCOSE, FASTING 174 MG/DL (70-100); MAGNESIUM LEVEL 2.9 MG/DL (1.8-2.4); PHOSPHORUS LEVEL 4.8 MG/DL (2.5-4.9); POTASSIUM SERUM 5.2 MEQ/L (3.5-5.1); SODIUM LEVEL 146 MEQ/L (136-145)
[2021-01-29] MEDS: SYMBICORT 160/4.5MCG INHALER 6GM INH SCH ×2 (07:34→19:13)
[2021-01-29] MEDS: PANTOPRAZOLE 40MG TAB (PROTONIX) PO SCH (07:57)
[2021-01-29] MEDS: HumaLOG INSULIN (NovoLOG) PER UNIT SC SCH ×4 (07:57→20:34)
[2021-01-29] MEDS: ATORVASTATIN 20 MG TAB PO SCH (07:57)
[2021-01-29] MEDS: VITAMIN D 1,000 INTERNATIONAL UNITS TABLET PO SCH (07:57)
[2021-01-29] MEDS: CARVedilol 3.125 MG TAB PO SCH ×2 (07:57→20:33)
[2021-01-29] MEDS: ASPIRIN 81MG ENTERIC TABLET PO SCH (07:58)
[2021-01-29] MEDS: TAMSULOSIN 0.4 MG CAP PO SCH (07:58)
[2021-01-29] MEDS: guaiFENesin ER 600 MG TAB PO SCH ×2 (07:58→20:45)
[2021-01-29] MEDS: ENOXAPARIN 40MG/0.4ML SYRINGE (J1650 PER 10MG) SC SCH (07:58)
[2021-01-29] MEDS: lisinopriL 5 MG TAB PO SCH (07:58)
[2021-01-29] MEDS ORDERED: QUEtiapine FUMARATE 12.5 MG HALF-TAB PO ONE ×2 (12:30→16:35)
[2021-01-29 12:55] LABS: ABG BASE EXCESS 9.9 (-2.0-2.0); ABG HCO3 38.1 MEQ/L (22.0-26.0); ABG O2 SATURATION 85.7 % (95.0-99.0); ABG STANDARD HCO3 33.3 MEQ/L (22.0-26.0); ABG TOTAL CO2 40.2 MEQ/L (23.0-31.0); ABG pH (ARTERIAL) 7.364 UNITS (7.350-7.450)
[2021-01-29 13:00] LABS: ABG PARTIAL PRESSURE CO2 68.4 mmHg (35.0-45.0); ABG PARTIAL PRESSURE O2 49.3 mmHg (75.0-100.0)
[2021-01-29 13:22] LABS: ABG BASE EXCESS 11.6 (-2.0-2.0); ABG HCO3 42.8 MEQ/L (22.0-26.0); ABG O2 SATURATION 98.4 % (95.0-99.0); ABG PARTIAL PRESSURE O2 135.3 mmHg (75.0-100.0); ABG STANDARD HCO3 35.4 MEQ/L (22.0-26.0); ABG TOTAL CO2 45.7 MEQ/L (23.0-31.0); ABG pH (ARTERIAL) 7.272 UNITS (7.350-7.450)
[2021-01-29 13:25] LABS: ABG PARTIAL PRESSURE CO2 94.8 mmHg (35.0-45.0)
--- NOTE | 2021-01-29 13:51 | IPNPDOC ---
Text Note Date of Service The patient was seen on 01/29/21. 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 Upon arrival to the room juan manning's oxygen saturation was approximately 80 other vital signs were stable and he was belly breathing. On physical examination patient had distant breath sounds, and no wheezing was appreciated. A/P earlier, primary physician was informed by nurses that he was having increased work of breathing and was subsequently placed on his BiPAP at bedside. However, reportedly this was found off unclear if this was done by the patient. At the time of the rapid he was placed back on his tabletop BiPAP without improvement. He was mentating well at the time of the rapid. He was switched over to a nonrebreather and later to a Venturi by the respiratory therapist which helped with oxygenation. Although, O2 improved there was elevated CO2. He was transferred to the PCU and placed on a V60 BiPAP. A repeat ABG showed minimal improvement in his CO2, and patient was becoming more confused and ripping off the mask but when there is someone in the room he is reoriented bone compliant. A sitter has been requested but there is a shortage in the hospital therefore this would not be possible. Discussed p ossible options with Dr. Archuleta (pum team): Considering his lung history he would be very difficult to liberate from the vent. Therefore, it was recommended by Dr. Archuleta for him to be placed on a Precedex drip while he is on the BiPAP with close monitoring by the nursing staff in hopes of decreasing his CO2. VS,Fishbone, I+O VS, Fishbone, I+O Laboratory Tests 01/29/21 05:24 Vital Signs Date Time Temp Pulse Resp B/P (MAP) Pulse Ox O2 Delivery O2 Flow Rate FiO2 01/29/21 07:58 157/76 01/29/21 07:57 88 01/29/21 06:00 98.2 24 99 Nasal Cannula 2.0 I&O- Last 24 Hours up to 6 AM 01/29/21 06:00 Intake Total 480 ml Output Total 0 ml Balance 480 ml DELMI CHEN M.D. Jan 29, 2021 13:51
[2021-01-29] MEDS ORDERED: ISOVUE-370 76% 100ML VIAL As Ordered ONE (13:58)
--- NOTE | 2021-01-29 14:05 | IPNPDOC ---
Subjective Date Seen The patient was seen on 01/29/21. Subjective Chief Complaint/HPI This is a 74-year-old gentleman with past medical history of extensive emphysema and chronic hypoxic respiratory failure on 4 to 5 L of oxygen at home, COPD, coronary artery disease, former tobacco abuse, hypertension, type 2 diabetes presented to ER on January 22, 2021 with complaints of midsternal chest tightness and shortness of breath. I previously had a chance to see him 3 days ago for pulmonary consult. At the time clinical evaluation was conclusive with severe COPD/emphysema and severe tracheobronchomalacia likely attributed to underlying COPD and GERD. I recommended him to start on intermittent BiPAP while he is in the hospital as patient is not a candidate for trial of silicone stent or tracheal reconstructive surgery. Today, I was reconsulted on this patient for worsening hypoxemia all of the sudden. He appears to be labored. He was immediately put on BiPAP with drop in oxygen saturation. Therefore, he was put on nonrebreather. Upon my evaluation, patient complains of shortness of breath but denies fever, chills, diaphoretic, chest pain, nausea, abdominal pain. Constitutional: Denies: Chills, Fever Eyes: Denies: Pain ENT: Denies: Sore Throat Skin: Denies: Rash Pulmonary: Reports: Dyspnea; Denies: Cough Cardiovascular: Reports: Orthopnea; Denies: Chest Pain, Palpitations Gastrointestinal: Denies: Nausea, Vomiting Neurological: Denies: Weakness Objective Physical Examination General Exam: Positive: Alert, Cooperative, Moderate Distress Eye Exam: Negative: Sclera icteric ENT Exam: Positive: Atraumatic Neck Exam: Positive: Supple; Negative: JVD Chest Exam: Positive: Diminished (Diminished breath sound bilaterally.) Heart Exam: Positive: Rate Normal, Normal S1, Normal S2, Other (No extra heart sounds appreciated.) Abdomen Exam: Positive: Normal bowel sounds Skin Exam: Negative: Rash, Lesion Neuro Exam: Positive: Normal Speech Psych Exam: Positive: Oriented x 3 Assessment /Plan Assessment This is a 74-year-old gentleman with past medical history of extensive emphysema and chronic hypoxic respiratory failure on 4 to 5 L of oxygen at home, COPD, coronary artery disease, former tobacco abuse, hypertension, type 2 diabetes presented to ER on January 22, 2021 with complaints of midsternal chest tightness and shortness of breath. 1. Acute on chronic hypoxic hypercapnic respiratory failure secondary to aspiration event versus pulmonary embolism as differential. 2. Chronic hypercapnic and hypoxic respiratory failure secondary to severe emphysema/COPD. 3. Severe tracheobronchomalacia 4. GERD Plan/VTE VTE Prophylaxis Ordered?: Yes (SCD, TEDS, lovenox) Plan -CT angiography to rule out pulmonary embolism which I have less suspicious of. It is likely that he went into transient aspiration pneumonitis. I recommend we provide him with supportive care as I anticipate he will improve in the next 24 to 48 hours. Aspiration precaution. If he does have pulmonary embolism, he will be started on anticoagulation. -He should be continue with intermittent BiPAP for severe tracheobronchomalacia and chronic COPD. BiPAP setting should be 12/6 with 5 L oxygen bled. Disposition continue hospital care. VS, [facility] Vital Signs/I&O Vital Signs Date Time Temp Pulse Resp B/P (MAP) Pulse Ox O2 Delivery O2 Flow Rate FiO2 01/29/21 07:58 157/76 01/29/21 07:57 88 01/29/21 06:00 98.2 24 99 Nasal Cannula 2.0 I&O- Last 24 Hours up to 6 AM 01/29/21 06:00 Intake Total 480 ml Output Total 0 ml Balance 480 ml Laboratory Data 24H LABS Laboratory Tests 2 01/28/21 16:38: Bedside Glucose (Misc Panel) 112H 01/28/21 19:56: Bedside Glucose (Misc Panel) 136H 01/29/21 05:24: Nucleated Red Blood Cells % (auto) 0.0, Anion Gap 1L, Glomerular Filtration Rate > 60.0, Calcium Level 8.2L, Phosphorus Level 4.8, Magnesium Level 2.9H 01/29/21 11:49: Bedside Glucose (Misc Panel) 217H 01/29/21 12:43: Blood Gas Bicarbonate Standard 33.3H, Arterial Blood pH 7.364, Arterial Blood Partial Pressure CO2 68.4*H, Arterial Blood Partial Pressure O2 49.3*L, Arterial Blood Total CO2 40.2H, Arterial Blood HCO3 38.1H, Arterial Blood Base Excess 9.9H, Arterial Blood Oxygen Saturation 85.7L 01/29/21 13:02: Blood Gas Bicarbonate Standard 35.4H, Arterial Blood pH 7.272L, Arterial Blood Partial Pressure CO2 94.8*H, Arterial Blood Partial Pressure O2 135.3H, Arterial Blood Total CO2 45.7H, Arterial Blood HCO3 42.8H, Arterial Blood Base Excess 11.6H, Arterial Blood Oxygen Saturation 98.4 CBC/BMP Laboratory Tests 01/29/21 05:24 Microbiology Microbiology 01/21/21 Respiratory Virus Panel (PCR) ([facility]) - Final, Complete WANDA IVERSON MD Jan 29, 2021 14:05
--- NOTE | 2021-01-29 14:26 | REP ---
INDICATION: r/o pe. COMPARISON: 01/21/2021. TECHNIQUE: CT angiogram chest performed following the intravenous administration of 100 cc of Isovue 370. Sagittal and coronal reconstruction images are performed. The study is limited by breathing motion. FINDINGS: Lungs: Clear, no infiltrate or nodule. Emphysematous changes are again noted. Mediastinum: No adenopathy. Pulmonary arteries: No evidence of pulmonary embolism. Aye: No adenopathy. Axilla: No adenopathy. Pleura: No effusion. Heart: Not enlarged. Thoracic aorta: No aneurysm or dissection. Upper abdominal structures: There is a 3 cm cyst in the upper pole of the left kidney.. Visualized osseous structures: Unremarkable. IMPRESSION: No CT evidence of pulmonary embolism. No infiltrate seen. <Electronically signed by Gume Mckeon > 01/29/21 [id number]
[2021-01-29 16:48] LABS: ABG PARTIAL PRESSURE O2 109.7 mmHg (75.0-100.0); ABG STANDARD HCO3 37.9 MEQ/L (22.0-26.0); ABG TOTAL CO2 46.7 MEQ/L (23.0-31.0); ABG pH (ARTERIAL) 7.326 UNITS (7.350-7.450)
[2021-01-29 16:49] LABS: ABG PARTIAL PRESSURE CO2 86.2 mmHg (35.0-45.0)
[2021-01-29] MEDS: dexmedeTOMidine 200 MCG in IV 1 EA IV SCH ×2 (18:35→21:09)
[2021-01-29 20:36] LABS: ABG O2 SATURATION 97.5 % (95.0-99.0); ABG PARTIAL PRESSURE O2 92.2 mmHg (75.0-100.0); ABG STANDARD HCO3 37.8 MEQ/L (22.0-26.0); ABG TOTAL CO2 45.5 MEQ/L (23.0-31.0); ABG pH (ARTERIAL) 7.354 UNITS (7.350-7.450)
[2021-01-30] VITALS (7 sets, daily range): BP systolic 96–134; BP diastolic 55–73
[2021-01-30] MEDS: dexmedeTOMidine 200 MCG in IV 1 EA IV SCH ×2 (01:22→06:54)
[2021-01-30] MEDS: LEVALBUTEROL 1.25 MG/0.5 ML CONCENTRATE NEB INH SCH ×3 (03:33→12:00)
[2021-01-30 05:05] LABS: HEMATOCRIT 39.1 % (42.0-52.0); MEAN CORPUSCULAR HEMOGLOBIN 30.3 pg (27.0-33.0); MEAN CORPUSCULAR HGB CONC 30.7 g/dl (32.0-36.5); MEAN CORPUSCULAR VOLUME 98.7 fl (80.0-96.0); PLATELET COUNT, AUTOMATED 144 10^3/uL (150-450); RED BLOOD COUNT 3.96 10^6/uL (4.30-6.10); WHITE BLOOD COUNT 9.9 10^3/uL (4.0-10.0)
[2021-01-30 05:39] LABS: BLOOD UREA NITROGEN 39 MG/DL (7-18); CARBON DIOXIDE LEVEL 41 MEQ/L (21-32); CHLORIDE LEVEL 102 MEQ/L (98-107); CREATININE FOR GFR 0.74 MG/DL (0.70-1.30); GLOMERULAR FILTRATION RATE > 60.0 (>42); GLUCOSE, FASTING 166 MG/DL (70-100); MAGNESIUM LEVEL 2.8 MG/DL (1.8-2.4); PHOSPHORUS LEVEL 2.9 MG/DL (2.5-4.9); POTASSIUM SERUM 4.6 MEQ/L (3.5-5.1); SODIUM LEVEL 141 MEQ/L (136-145)
[2021-01-30] MEDS: SLF 3 ML SYR IV SCH ×3 (06:01→21:27)
[2021-01-30] MEDS: SYMBICORT 160/4.5MCG INHALER 6GM INH SCH (08:00)
[2021-01-30] MEDS: methylPREDNISolone 125MG 2ML VIAL IV SCH (08:46)
[2021-01-30] MEDS: TAMSULOSIN 0.4 MG CAP PO SCH (08:46)
[2021-01-30] MEDS: VITAMIN D 1,000 INTERNATIONAL UNITS TABLET PO SCH (08:46)
[2021-01-30] MEDS: PANTOPRAZOLE 40MG TAB (PROTONIX) PO SCH (08:46)
[2021-01-30] MEDS: ATORVASTATIN 20 MG TAB PO SCH (08:46)
[2021-01-30] MEDS: ASPIRIN 81MG ENTERIC TABLET PO SCH (08:46)
[2021-01-30] MEDS: guaiFENesin ER 600 MG TAB PO SCH (08:46)
[2021-01-30] MEDS: ENOXAPARIN 40MG/0.4ML SYRINGE (J1650 PER 10MG) SC SCH (08:47)
[2021-01-30] MEDS: CARVedilol 3.125 MG TAB PO SCH (08:48)
[2021-01-30] MEDS: HumaLOG INSULIN (NovoLOG) PER UNIT SC SCH (08:48)
[2021-01-30] MEDS: lisinopriL 5 MG TAB PO SCH (08:48)
[2021-01-30] MEDS ORDERED: SCOPOLAMINE 1MG TRANSDERMAL PATCH TOP PRN (09:35)
[2021-01-30] MEDS ORDERED: MORPHINE 10MG/0.5ML ORAL CONCENTRATE SOLUTION U/D SL PRN (09:35)
[2021-01-30] MEDS ORDERED: HYOSCYAMINE SULFATE 0.125 MG SUBL TABLET PO PRN (09:35)
[2021-01-30] MEDS ORDERED: LORazepam 1 MG TAB PO PRN (09:35)
--- NOTE | 2021-01-30 10:17 | IPNPDOC ---
Subjective Date Seen The patient was seen on 01/30/21. Subjective Chief Complaint/HPI Mr. Cifuentes is a 75 year old male with COPD, CAD, HTN, and DM type 2 who is here with acute on chronic hypoxic and hypercapnic respiratory failure. Yesterday, patient was in acute hypercapnic respiratory failure with pH of 7.27 and pCO2 of 94.8. He was put on BIPAP and he struggled against it. He was put on Precedex, and he left the BIPAP on all night. His pH improved to 7.35 and pCO2 79. He is a chronic retainer so his pCO2 will be elevated, but the pH tells us he is compensated. This morning, he was A&Ox3 and wanted the mask off. I was in the room when Dr. Archuleta was there. Patient was A&Ox3 and knew who the president was. Patient declared that he did not want intubation or resuscitation. I stepped in and discussed code status with patient. I explained to him that we had two routes. The BIPAP will keep him alive, but he would have to tolerate the discomfort from the mask. The other option would to be made comfortable and treat his symptoms, but he will because he would not be using the mask. Patient wanted to be comfortable and understood he will without the mask. He signed the new MOLST stating HEAT TRANSFER TECHNICIAN at 0925 this morning. I called his sister (Raegan Cifuentes at [phone], number in system is incorrect). She is aware he has not tolerated treatment and will most likely . She knows he will want to be home and wanted to know when to picker and sorter load and unload. He lives home alone. I let her know he cannot be home alone. She said she will try to arrange someone to be with him. Objective Physical Examination General Exam: Positive: Alert, Cooperative Eye Exam: Negative: Sclera icteric ENT Exam: Positive: Atraumatic Neck Exam: Positive: Supple Chest Exam: Positive: Diminished (Diminished breath sound bilaterally.) Heart Exam: Positive: Rate Normal, Regular Rhythm Abdomen Exam: Positive: Normal bowel sounds Neuro Exam: Positive: Normal Speech Psych Exam: Positive: Mental status NL, Oriented x 3 Assessment /Plan Assessment Mr. Cifuentes is a 75 year old male with COPD, CAD, HTN, and DM type 2 who is here with acute on chronic hypoxic and hypercapnic respiratory failure. Most likely secondary to COPD exacerbation. Patient was put on IV steroids and breathing treatments. On 01/29/21, he had metabolic encephalopathy secondary to decompensated hypercarbia. It resolved with BIPAP. On 01/30/21, he was A&Ox3. He did not want the BIPAP anymore. We explained that he will needed it to live. He understands his lungs are bad and he will pass away without using the BIPAP. He wanted to be comfortable. We discussed code status and comfort measure today. He agreed to HEAT TRANSFER TECHNICIAN today. I contacted the sister, Sarita Cifuentes, and she is aware of his decision. Plan/VTE VTE Prophylaxis Ordered?: Yes (SCD, TEDS, lovenox) Plan 1. Acute hypoxic hypercapnic respiratory failure 2. COPD exacerbation 3. Tracheobronchomalacia 4. HTN 5. CAD 6. Hepatic steatosis 7. Left non-obstructing nephrolithiasis 8. Bilateral renal cysts 9. Abdominal aorta atherosclerosis 10. Prostate hyperplasia 11. Colonic diverticulosis Disposition: Patient has decided HEAT TRANSFER TECHNICIAN. Notified PFS (Herve Booth) and placed HEAT TRANSFER TECHNICIAN and hospice orders. Hospice consulted, recommendations appreciated. VS, I&O, 24H, Fishbone Vital Signs/I&O Vital Signs Date Time Temp Pulse Resp B/P (MAP) Pulse Ox O2 Delivery O2 Flow Rate FiO2 01/30/21 08:48 81 134/73 01/30/21 07:30 35 01/30/21 06:00 98.1 20 98 NIPPV (BIPAP/CPAP) 01/29/21 15:00 2.0 I&O- Last 24 Hours up to 6 AM 01/30/21 06:00 Intake Total 400 ml Output Total 0 ml Balance 400 ml Laboratory Data 24H LABS Laboratory Tests 2 01/29/21 11:49: Bedside Glucose (Misc Panel) 217H 01/29/21 12:43: Blood Gas Bicarbonate Standard 33.3H, Arterial Blood pH 7.364, Arterial Blood Partial Pressure CO2 68.4*H, Arterial Blood Partial Pressure O2 49.3*L, Arterial Blood Total CO2 40.2H, Arterial Blood HCO3 38.1H, Arterial Blood Base Excess 9.9 H, Arterial Blood Oxygen Saturation 85.7L 01/29/21 13:02: Blood Gas Bicarbonate Standard 35.4H, Arterial Blood pH 7.272L, Arterial Blood Partial Pressure CO2 94.8*H, Arterial Blood Partial Pressure O2 135.3H, Arterial Blood Total CO2 45.7H, Arterial Blood HCO3 42.8H, Arterial Blood Base Excess 11.6H, Arterial Blood Oxygen Saturation 98.4 01/29/21 16:30: Blood Gas Bicarbonate Standard 37.9H, Arterial Blood pH 7.326L, Arterial Blood Partial Pressure CO2 86.2*H, Arterial Blood Partial Pressure O2 109.7H, Arterial Blood Total CO2 46.7H, Arterial Blood HCO3 44.0H, Arterial Blood Base Excess 14.0H, Arterial Blood Oxygen Saturation 98.0 01/29/21 20:26: Blood Gas Bicarbonate Standard 37.8H, Arterial Blood pH 7.354, Arterial Blood Partial Pressure CO2 79.0*H, Arterial Blood Partial Pressure O2 92.2, Arterial Blood Total CO2 45.5H, Arterial Blood HCO3 43.0H, Arterial Blood Base Excess 14.0H, Arterial Blood Oxygen Saturation 97.5 01/29/21 20:31: Bedside Glucose (Misc Panel) 164H 01/30/21 04:52: Nucleated Red Blood Cells % (auto) 0.0, Anion Gap , Glomerular Filtration Rate > 60.0, Calcium Level 8.0L, Phosphorus Level 2.9#, Magnesium Level 2.8H CBC/BMP Laboratory Tests 01/30/21 04:52 Microbiology Microbiology 01/21/21 Respiratory Virus Panel (PCR) ([facility]) - Final, Complete FABY THOMSON DO Jan 30, 2021 10:17
[2021-01-30] MEDS ORDERED: ONDANSETRON 4MG/2ML VIAL IV PRN (11:10)
[2021-01-30] MEDS: MORPHINE 2 MG/ML 1ML VIAL (J2270) IV PRN ×2 (11:26→21:28)
[2021-01-30] MEDS: LORazepam 2 MG/ML VIAL IV PRN (14:20)
[2021-01-31] MEDS: LORazepam 2 MG/ML VIAL IV PRN ×2 (00:35→13:29)
[2021-01-31] MEDS: SLF 3 ML SYR IV SCH (05:29)
[2021-01-31] MEDS ORDERED: ATIV1TAB10 PO (11:07)
[2021-01-31] MEDS ORDERED: MORP1SOL5 PO (11:07)
[2021-01-31] MEDS ORDERED: HYOS125TA PO (11:07)
--- NOTE | 2021-01-31 18:17 | DS.PDOC ---
Discharge Summary General Date of Admission Jan 21, 2021 at 15:44 Date of Discharge Jan 31, 2021 Specialist/Consultants [facility] Pulmonary/critical care, Dr. Archuleta Discharge Summary PROCEDURES PERFORMED DURING STAY: None ADMITTING DIAGNOSES: 1. Acute on chronic hypoxic respiratory failure 2. Acute COPD exacerbation 3. Diabetes mellitus type 2 4. Hypertension 5. Hepatic steatosis 6. Left nonobstructive nephrolithiasis 7. Bilateral renal cysts 8. Abdominal aorta atherosclerosis 9. Prostatic hyperplasia 10. Colonic diverticulosis DISCHARGE DIAGNOSES: 1. Acute on chronic hypoxic and hypercapnic respiratory failure 2. Acute COPD exacerbation 3. Diabetes mellitus type 2 4. Hypertension 5. Hepatic steatosis 6. Left nonobstructive nephrolithiasis 7. Bilateral renal cysts 8. Abdominal aorta atherosclerosis 9. Prostatic hyperplasia 10. Colonic diverticulosis COMPLICATIONS/CHIEF COMPLAINT: Copd Exacerbation. HISTORY OF PRESENT ILLNESS: Copied from admitting providers H&P " Patient is a 75 year old male with past medical history of COPD, Coronary artery disease, hypertension, and type 2 diabetes mellitus presented to ER today by private vehicle after feeling dyspnea at home around 6:30-7AM. He said the dyspnea started gradually with alleviating factor including inhalers and laying supine; no aggravating factor. He denies coughing, fever, chills, or sputum production. He is usually on 5L of oxygen at home. He said he fell off the bed around 6:30 to 7AM and hit his forehead; patient unable to explain if it was mechanical fall or not. He denies any lightheadedness, dizziness, headache, loss of consciousness, extremity weakness, numbness, tingling, or loss of sensation. He also described chest pain that is dull; he pointed toward left upper quadrant abdomen for his chest pain location. " HOSPITAL COURSE: Patient COPD exacerbation was treated with IV steroids, IV antibiotics, and breathing treatments. Patient was getting better and attempted to wean off of steroids. Patient still had significant dyspnea on exertion. Steroids were increased and pulmonary/critical care was consulted. Recommending the use of BiPAP. Attempted several times to use BiPAP, but patient did not want to use BiPAP. On 01/29/2021, patient acutely decompensated. pH dropped to 7.27 and PCO2 increased to 94.8. Patient was struggling to breathe and confused. Patient was full code at that time. BiPAP was placed but patient kept taking it off. At that time, patient could not make medical decisions due to his confusion. In order to use BiPAP and not intubate the patient, patient was put on Precedex. Patient left the BiPAP on. The following morning, patient became compensated again and pH was 7.35 (PCO2 was 79). Patient was A&O x4. Dr. Archuleta and I had a discussion with the patient. Dr. Archuleta asked the patient about intubation and resuscitation. Patient did not want to be intubated or resuscitated. I discussed with the patient about CODE STATUS. The BiPAP was keeping patient alive and cognitively thinking. I explained to him that if he does not want to use the BiPAP he will . The first option would be to use BiPAP. The other option would be comfort measures. He will not need to use the BiPAP and we will treat his symptoms but he will from this. Patient does not want to use BiPAP, and he understands that he will if he does not use BiPAP. He only wants his symptoms to be treated. 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 I contacted his sister, Sarita, and she understands patient's decision. Sarita worked on arranging care at home for patient. I spoke to PFS about hospice care at home. PFS arrange patient to be discharged home today on 01/31/2021. Otherwise, patient would benefit from hospital bed. The beneficiary requires positioning of the body in the ways not feasible with an ordinary bed in order to alleviate pain. The beneficiary requires the head of the bed to be elevated more than 30 degrees most of the time due to chronic pulmonary disease. The beneficiary requires frequent changes in body position and/or has an immediate need for a change in body position. DISCHARGE MEDICATIONS: Please see below. ALLERGIES: Please see below. PHYSICAL EXAMINATION ON DISCHARGE: VITAL SIGNS: Please see below. GENERAL: Patient appears to be comfortable, although he is belly breathing. Patient is not alert or awake. LABORATORY DATA: Please see below. IMAGING: Radiologist interpretation CT angio chest 1. Centrilobular and paraseptal emphysematous changes demonstrated bilaterally. No acute infiltrates. 2. There is fusiform dilatation of the ascending thoracic aorta which measures 3.9 cm. maximally. There is no dissection or saccular component. 3. There are no pulmonary emboli. PROGNOSIS: Poor ACTIVITY: As tolerated DIET: As tolerated DISCHARGE PLAN: Home with hospice DISPOSITION: 50 Hospice Home. DISCHARGE INSTRUCTIONS: 1. Follow-up with hospice 2. Follow-up with PCP as needed ITEMS TO FOLLOWUP ON ON OUTPATIENT: 1. Hospice. DISCHARGE CONDITION: Hospice. Total time spent on discharge planning, discharge summary, medication reconciliation: 25 minutes Vital Signs/I&Os Vital Signs Date Time Temp Pulse Resp B/P (MAP) Pulse Ox O2 Delivery O2 Flow Rate FiO2 01/31/21 10:00 3.0 01/30/21 08:48 81 134/73 01/30/21 08:15 35 01/30/21 08:00 98.4 26 96 NIPPV (BIPAP/CPAP) I&O- Last 24 Hours up to 6 AM 01/31/21 06:00 Intake Total 0 ml Output Total 250 ml Balance -250 ml Microbiology Microbiology 01/21/21 Respiratory Virus Panel (PCR) ([facility]) - Final, Complete Discharge Medications Scheduled PRN Hyoscyamine Sulfate (Hyoscyamine Sulfate) 0.125 Mg Tab.subl, 0.125 MG PO Q4HP PRN for TERMINAL SECRETIONS Use sublingually if unable to swallow Ipratropium/Albuterol Sulfate (Combivent Respimat 20-100 Mcg) 4 Gm Mist.inhal, 1 PUFF INH QID PRN for SHORTNESS OF BREATH, (Reported) Lorazepam (Ativan) 0.5 Mg Tablet, 0.5 MG PO Q4HP PRN for ANXIETY/AGITATION Use sublingually if unable to swallow Morphine Sulfate (Morphine Sulfate) 100 Mg/5 Ml Solution, 0.25-1 ML PO Q2H PRN for PAIN OR DYSPNEA Use sublingually if unable to swallow Allergies Coded Allergies: No Known Allergies (Unverified , 12/06/19) FABY THOMSON DO Jan 31, 2021 18:17
== END 2021-01-31 14:05 | disposition hospice, home (50) | DRG 190 ==
LOC: M ED 15:43 → M ED INP 15:44 → M PCU 01-22 00:50 → M MS5PR 01-24 10:35 → M PCU 01-29 14:08 → M MSPAV 01-30 15:40
PROVIDERS: ADMIT Family Medicine; ATTEND Internal Medicine
DX: J44.1 Chronic obstructive pulmonary disease with (acute) exacerbation (principal); J96.21 Acute and chronic respiratory failure with hypoxia; J96.22 Acute and chronic respiratory failure with hypercapnia; K57.30 Diverticulosis of large intestine without perforation or abscess without bleeding; E11.9 Type 2 diabetes mellitus without complications; K76.0 Fatty (change of) liver, not elsewhere classified; N28.1 Cyst of kidney, acquired; N40.0 Benign prostatic hyperplasia without lower urinary tract symptoms; I10 Essential (primary) hypertension; I25.10 Atherosclerotic heart disease of native coronary artery without angina pectoris; Z51.5 Encounter for palliative care; Z79.899 Other long term (current) drug therapy; Z79.82 Long term (current) use of aspirin; Z87.891 Personal history of nicotine dependence; N20.0 Calculus of kidney; K21.9 Gastro-esophageal reflux disease without esophagitis